=== PATIENT | female | born 1965 | race Caucasian/White ===

== ENCOUNTER 2021-11-06 12:53 | Emergency (ER) | payer BC, SELFPAY ==
[2021-11-06 13:03] VITALS: BP 130/66; PULSE 61; RESP 20; TEMP 36.7; O2SAT 99
--- NOTE | 2021-11-06 13:33 | ED.URI ---
HPI - URI/Sore Throat General Chief Complaint: Upper Respiratory Infection Stated Complaint: uri Time Seen by Provider: 11/06/21 13:34 Source: patient and RN notes reviewed Mode of arrival: ambulatory Limitations: no limitations History of Present Illness HPI Narrative: 55-year-old female presented for complaint of sinus drainage, cough, hoarse voice, and bilateral ear pressure for 2 days. She took NyQuil last night. She endorses her grandson has similar symptoms. She denies shortness of breath, nausea, vomiting, fevers or chills. MD elicited complaint: cough Related Data Home Medications Medication Instructions Recorded Confirmed cyanocobalamin (vitamin B-12) 1,000 mcg IM MONTHLY 11/06/21 11/06/21 1,000 mcg/mL injection solution gabapentin 300 mg capsule 30 mg PO TID 11/06/21 11/06/21 levothyroxine 75 mcg tablet 75 mcg PO DAILY 11/06/21 11/06/21 mirtazapine 30 mg tablet 30 mg PO DAILY 11/06/21 11/06/21 Allergies Allergy/AdvReac Type Severity Reaction Status Date / Time ciprofloxacin [From Cipro] Allergy Hives Verified 11/06/21 13:10 Review of Systems Review of Systems: CONSTITUTIONAL: denies malaise, chills, sweats, fever EYES: Denies visual changes, redness, or discharge ENT: Reports rhinorrhea, congestion, sinus pain, otalgia, sore throat CARDIOVASCULAR: Denies chest pain, palpitations, edema RESPIRATORY: Reports cough, post nasal drainage. Denies dyspnea GASTROINTESTINAL: Denies abdominal pain, nausea, vomiting, diarrhea SKIN: Denies rash or itching MUSCULOSKELETAL: denies myalgia NEUROLOGIC: Denies headache Exam Narrative: GENERAL: Ill-appearing, nontoxic EYES: conjunctivae clear ENT: Mucous membranes moist. TM pearly jane with dull light reflex bilaterally; no tragal tenderness. Oropharynx erythematous without lesions or exudate, hoarse voice; no drooling, no trismus, uvula midline. No tripod positioning, muffled voice, soft palate or pharyngeal wall bulging NECK: Supple. No lymphadenopathy CHEST: Clear to auscultation, breath sounds equal. HEART: Regular rate and rhythm. No murmur heard. SKIN: Warm, dry, no rash. NEURO: Alert and oriented x3. PSYCH: Normal mood and affect Course Course Emergency Course: Patient is aware of diagnosis, understands and agrees to treatment plan. Anticipatory guidance given. Patient agrees to follow-up as directed and is aware of reasons to seek care at the emergency department. Portions of this record may have been created with voice recognition software Level of Care: Express Care Visit Vital Signs Vital signs: Vital Signs Temperature 98.1 F 11/06/21 13:03 Pulse Rate 61 11/06/21 13:03 Respiratory Rate 20 11/06/21 13:03 Blood Pressure 130/66 11/06/21 13:03 Pulse Oximetry 99 11/06/21 13:03 Oxygen Delivery Room Air 11/06/21 13:03 Temperature 98.1 F 11/06/21 13:03 Pulse Rate 61 11/06/21 13:03 Respiratory Rate 20 11/06/21 13:03 Blood Pressure 130/66 11/06/21 13:03 Pulse Oximetry 99 11/06/21 13:03 Oxygen Delivery Room Air 11/06/21 13:03 reviewed MDM - URI/Sore Throat MDM Narrative Medical decision making narrative: Advised supportive measures for URI and signs/symptoms to go to the ER. Pt is appropriate for outpt treatment and f/u. Differential Diagnosis Differential diagnosis: Likely upper respiratory infection, sinusitis and viral infection Discharge Plan Discharge Clinical Impression: Upper respiratory infection Qualifiers: URI type: unspecified URI Qualified Code(s): J06.9 - Acute upper respiratory infection, unspecified Patient Disposition: Home, Self-Care Condition: Stable Instructions: Allergic Rhinitis (ED) Additional Instructions: Recommend Flonase spray and Zyrtec (or Claritin/Mary) over the counter Cough syrup may cause drowsiness; avoid driving or take it at night time. Tylenol 1000mg every 8 hours as needed for pain Symptomatic treatment includes: rest, fluids, and increase hu
== END 2021-11-06 13:48 | disposition home or self-care (01) ==
PROVIDERS: Emergency Provider Nurse Practitioner Family; PCP Family Medicine
DX: J06.9 Acute upper respiratory infection, unspecified (principal)
CPT/HCPCS: 99213; G0463

== ENCOUNTER 2022-04-28 16:14 | Outpatient (CLI) | payer BC, SELFPAY ==
--- NOTE | ~2022-04-28 | US_ITS ---
EXAMINATION: US retroperitoneal comp DATE: 04/28/2022 16:50 INDICATION: Chronic cystitis, history of left renal cyst TECHNIQUE: Multiple grayscale and Doppler ultrasound images of the kidneys were obtained. COMPARISON: None. FINDINGS: The right kidney measures 10.7 x 4.9 x 4.8 cm. The left kidney measures 9.7 x 4.9 x 3.2 cm and contains a 4.7 cm simple cyst. The kidneys demonstrate normal parenchymal echogenicity. There is no hydronephrosis. The bladder is normal. IMPRESSION: 1. Cyst of the left kidney, otherwise normal kidneys without hydronephrosis. Reviewed, dictated and finalized at location F. OGRAPH ENGRAVER
== END 2022-04-28 16:15 | disposition home or self-care (01) ==
LOC: ANHIMG 16:17
PROVIDERS: PCP Family Medicine; Visit Provider Nurse Practitioner Family
DX: N30.20 Other chronic cystitis without hematuria (principal); N28.1 Cyst of kidney, acquired
CPT/HCPCS: 76770

== ENCOUNTER 2022-06-11 09:30 | Inpatient (IN) | payer BC, SELFPAY ==
[2022-06-11] VITALS (21 sets, daily range): BP systolic 118–179; BP diastolic 65–84; PULSE 57–81; RESP 13–21; TEMP 36.8–37.1; O2SAT 93–99; BMI 33.3
--- NOTE | ~2022-06-11 | XR_ITS ---
EXAMINATION: XR chest 1V portable DATE: 06/11/2022 11:45 INDICATION: Syncope. TECHNIQUE: A single frontal view of the chest was obtained. COMPARISON: None. FINDINGS: The chest demonstrates clear lungs without pneumonia, pleural effusion, or pneumothorax. Th e heart size is normal. There are changes of anterior fusion procedures in cervical spine. Surgical c lips in the right upper quadrant are likely from cholecystectomy. IMPRESSION: 1. No acute cardiopulmonary disease. Reviewed, dictated and finalized at location A.
--- NOTE | ~2022-06-11 | MR_ITS ---
EXAMINATION: MR brain/brain stem wo/w con DATE: 06/11/2022 17:32 INDICATION: Syncope. TECHNIQUE: Magnetic resonance imaging (MRI) of the brain and brainstem was performed without and with 17 mL MultiHance intravenous contrast. COMPARISON: Head CT 06/11/2022 FINDINGS: There is no intracranial hemorrhage, acute infarction, or abnormal intracranial mass lesion . The ventricles are normal in size. The orbits are normal. The paranasal sinuses are clear. The mast oid air cells are normal. IMPRESSION: 1. Normal brain. Reviewed, dictated and finalized at location E. IMPRESSION: 1. Normal brain.
--- NOTE | ~2022-06-11 | CT_ITS ---
EXAMINATION: CT brain wo con DATE: 06/11/2022 11:40 INDICATION: Syncope. TECHNIQUE: Computed tomography (CT) of the head was performed without intravenous contrast. The mA wa s adjusted according to patient size. Iterative reconstruction technique was employed. The dose-lengt h product was 605.33 mGy-cm. COMPARISON: None FINDINGS: There is no intracranial hemorrhage, acute infarction, or abnormal intracranial mass lesion . The ventricles are normal in size. The orbits are normal. There is mild mucosal thickening in the p aranasal sinuses. The mastoid air cells are normal. IMPRESSION: 1. Normal brain. Reviewed, dictated and finalized at location A. IMPRESSION: 1. Normal brain.
--- NOTE | ~2022-06-11 | US_ITS ---
EXAMINATION: US carotid duplex BI DATE: 06/11/2022 17:06 INDICATION: Transient alteration of awareness TECHNIQUE: Grayscale, color Doppler, and pulsed Doppler images of the cervical carotid arteries were obtained. The degree of vessel stenosis is placed in one of the following categories: normal, <50%, 5 0-69%, >=70% but less than near-occlusion, near-occlusion, or total occlusion. Note that percent sten osis relative to normal distal artery lumen diameter is indirectly measured from velocity measurement s as described by Taiwo, et al. Radiology 2003; 229:340-346. COMPARISON: None. FINDINGS: RIGHT: The right common carotid artery (CCA) peak systolic velocity (PSV) is 64 cm/s. The right internal car otid artery (ICA) PSV is 61 cm/s. The right ICA end-diastolic velocity (EDV) is 22 cm/s. The right IC A/CCA PSV ratio is 1.0. Grayscale and color Doppler images yield an estimate of less than 50% diamete r reduction from plaque in the ICA. The external carotid artery (ECA) PSV is 92 cm/s. There is antegr andrea flow in the right vertebral artery. LEFT: The left CCA PSV is 68 cm/s. The left ICA PSV is 81 cm/s. The left ICA EDV is 33 cm/s. The left ICA/C CA PSV ratio is 1.2. Grayscale and color Doppler images yield an estimate of less than 50% diameter r eduction from plaque in the ICA. The ECA PSV is 75 cm/s. There is antegrade flow in the left vertebra l artery. IMPRESSION: 1. <50% stenosis in the right internal carotid artery. 2. <50% stenosis in the left internal carotid artery. Reviewed, dictated and finalized at location F.
--- NOTE | 2022-06-11 09:44 | ECG_ITS ---
Measurements Intervals [place] Rate: 67 P: 28 OK: 152 QRS: 26 QRSD: 90 T: 51 QT: 401 QTc: 424 Interpretive Statements SINUS RHYTHM NONSPECIFIC T-WAVE ABNORMALITY BORDERLINE ECG NO PREVIOUS ECG AVAILABLE FOR COMPARISON Electronically Signed On 06-11-2022 16:48:14 CDT by Alexandru Galicia M.D.
[2022-06-11 09:55] LABS: Basophils Absolute Auto 0.1 K/mm3 (0.0-0.1); Basophils Percent Auto 0.6 % (0.2-1.2); Eosinophils Absolute Auto 0.2 K/mm3 (0-0.3); Eosinophils Percent Auto 2.1 % (0-4.4); Hemoglobin 14.1 g/dL (12.0-15.0); Immature Granulocyte Absolute 0.26 K/mm3 (0.00-0.031); Immature Granulocyte Percent A 2.4 % (0-0.5); Lymphocytes Absolute Auto 2.47 K/mm3 (0.9-3.2); Lymphocytes Percent Auto 22.9 % (18.3-44.2); Mean Corpuscular HGB Conc 33.6 g/dl (32-36); Mean Corpuscular Hemoglobin 29.4 pg (26-34); Mean Corpuscular Volume 87.7 fl (80-100); Mean Platelet Volume 8.9 fl (7.4-10.4); Monocytes Absolute Auto 0.5 K/mm3 (0.1-0.6); Neutrophils Absolute Auto 7.2 K/mm3 (1.3-6.7); Platelet Count Result 318 k/mm3 (150-375); Red Blood Count 4.79 M/mm3 (4.2-5.4); Red Cell Distribution Width 12.9 % (11.5-14.5); White Blood Count 10.8 K/mm3 (4.5-10.0)
[2022-06-11 10:05] LABS: Alanine Aminotransferase 21 U/L (6-35); Albumin Level 4.5 g/dL (3.5-5.1); Alkaline Phosphatase 121 U/L (38-126); Anion Gap 7 mmol/L (8-16); Aspartate Amino Transferase 25 U/L (14-36); Bilirubin,Total 0.5 mg/dL (0.2-1.3); Blood Urea Nitrogen 8 mg/dL (7-17); Calcium 9.1 mg/dL (8.4-10.2); Carbon Dioxide 26 mmol/L (22-30); Chloride 105 mmol/L (98-107); Estimated CRCL calculation 113 ml/min; Estimated Glomerular Filt Rate > 60; Glucose 131 mg/dL (65-110); Potassium 3.6 mmol/L (3.4-5.0); Sodium 138 mmol/L (137-145)
[2022-06-11 10:09] LABS: Prothrombin Time 12.7 Seconds (11.1-14.7)
[2022-06-11 10:10] LABS: Partial Thromboplastin Time 26.3 SECONDS (22.3-36.8)
[2022-06-11 10:47] LABS: Appearance Urine Clear (Clear); Bacteria Urine None Seen /hpf; Bilirubin Urine Negative (Negative); Blood Urine Negative (Negative); Color Urine Yellow (Yellow); Glucose Urine UA Negative (Negative); Ketones Urine Negative (Negative); Leukocyte Esterase Ur 2+ LEU/UL (Negative); Nitrate Urine Negative (Negative); Non Pathogenic Casts 0-2; Protein Urine Negative (Negative); RBC Urine 0-2 /hpf (0-2); Specific Grav Ur 1.012 (1.001-1.035); Squamous Epithelial Cell Urine Occasional /hpf (Few); Urobilinogen Urine 0.2 mg/dL (<2.0); pH Urine 5.5 (5.0-9.0)
[2022-06-11 10:49] LABS: Add Urine Microscopic? YES
--- NOTE | 2022-06-11 11:15 | PC.NURSE ---
This nurse called to room at this time. Patient states, I have a headache, there's ringing in my ears, I can't stop shaking, this light is bright and I haven't even seen the doctor yet. This iv hurts too. I don't understand what's taking so long this is ridiculous/ This nurse explained the ER process and that protocol orders were done as well as continuous vital sign monitoring, lights were dimmed to help with patient's symptoms. Patient was asked to keep her arm still while blood pressure was being taken and patient was able to remain entirely still the entire time the blood pressure was being taken. Patient was informed the the physician would be with her as soon as possible and she would continue to be monitored closely for any change in condition. Patient is still upset. Jodie charge nurse notified
--- NOTE | 2022-06-11 11:27 | ED.AMS ---
HPI - Altered Mental Status General Chief Complaint: Altered Mental Status Stated Complaint: unresponsive Time Seen by Provider: 06/11/22 11:00 Source: patient History of Present Illness HPI narrative: 56 years old white female came to the emergency room by ambulance because of syncope. Patient was working in her office sitting on chair sudden onset of left arm pain within 2 minutes patient blacked out and was unresponsive for 15 minutes, upon arrival smelling salts were used and the patient is now conscious. Patient denies any new stress, chest pain, shortness of breath, abdominal pain, fever or chills or having similar symptoms in the past. Currently complaining that her head hurt her eyes hurt and does not feel good. Patient is telling me that she have test of blood in her mouth. Related Data Home Medications Medication Instructions Recorded Confirmed cyanocobalamin (vitamin B-12) 1,000 mcg IM MONTHLY 11/06/21 11/06/21 1,000 mcg/mL injection solution gabapentin 300 mg capsule 30 mg PO TID 11/06/21 11/06/21 levothyroxine 75 mcg tablet 75 mcg PO DAILY 11/06/21 11/06/21 mirtazapine 30 mg tablet 30 mg PO DAILY 11/06/21 11/06/21 Allergies Allergy/AdvReac Type Severity Reaction Status Date / Time ciprofloxacin [From Cipro] Allergy Hives Verified 06/11/22 09:42 Review of Systems Review of Systems: All systems reviewed & are unremarkable except as noted in HPI and below Exam Narrative: General appearance: Well-developed, well-nourished Skin: Normal color Head: Normocephalic, nontraumatic Eyes: Clear conjunctiva ENT: Oropharynx normal, ears normal, nose normal, no oral blood, no biting, Neck: Supple, nontender Chest and respiratory: Airway patent, no respiratory distress, no accessory muscle use Heart: Regular rate/rhythm Abdomen: Soft, nontender, no organomegaly, quiet bowel sounds Vascular: Normal peripheral pulses, normal capillary refill. Musculoskeletal: Normal range of motion, nontender back Neurologic: Alert and oriented ?3, [employer] WORK[employer] is normal as tested, no gross motor deficit Course Reevaluation(s) Reevaluation #1: Feeling much better after having morphine and Zofran IV. Date: 06/11/22 Time: 13:16 Vital Signs Vital signs: Vital Signs Temperature 37.1 C 06/11/22 09:30 Pulse Rate 67 06/11/22 09:30 Respiratory Rate 16 06/11/22 09:30 Blood Pressure 179/84 H 06/11/22 09:30 Pulse Oximetry 98 06/11/22 09:30 Oxygen Delivery Room Air 06/11/22 09:30 Temperature 37.1 C 06/11/22 09:30 Pulse Rate 67 06/11/22 12:29 Respiratory Rate 17 06/11/22 12:29 Blood Pressure 144/72 H 06/11/22 12:29 Pulse Oximetry 99 06/11/22 12:29 Oxygen Delivery Room Air 06/11/22 09:30 MDM - Altered Mental Status MDM Narrative Medical decision making narrative: Patient had syncope at work while sitting on the computer, after having sudden onset of left arm pain. Patient was unresponsive for 15 minutes, history of anxiety and depression. Differential diagnosis: Anxiety related symptoms, seizure, cardiac arrhythmia. Physical examination is unremarkable except patient complaining of headache and the blood test abnormality. Work-up today showed urine with 2+ leukoesterase and 11-20 WBC. This is high likely coincidental finding, urine infection was never trigger or associated with syncope. Chest x-ray showed no acute abnormality, CT head without contrast showed no acute abnormality. Because the syncope still of unknown etiology. Patient will be admitted to [facility] for further evaluation. Discussed with Dr. Fuller Differential Diagnosis Differential diagnosis: Likely other (Anxiety-like symptoms, seizure, cardiac arrhythm
[2022-06-11 11:58] LABS: Amphetamine Screen Urine Negative (Negative); Barbiturate Screen Urine Negative (Negative); Benzodiazepines Screen Urine Negative (Negative); Cannabinoid Screen Urine Negative (Negative); Cocaine Screen Urine Negative (Negative); Methadone Screen Urine Negative (Negative); Opiate Screen Urine Negative (Negative); Phencyclidine Screen Urine Negative (Negative)
--- NOTE | 2022-06-11 12:37 | PC.NURSE ---
heart healthy lunch tray ordered
[2022-06-11] MEDS: MORPHINE SULFATE (*CRX) 4 MG/ML INJ IV PUSH (13:17)
[2022-06-11] MEDS: ONDANSETRON INJ 4 MG/2 ML VIAL IV PUSH (13:17)
--- NOTE | 2022-06-11 13:20 | PC.NURSE ---
patient finished with lunch tray at this time
--- NOTE | 2022-06-11 13:45 | PM.IMHP ---
H&P: HPI History of Present Illness Date/Time: 06/11/22 13:45 Chief Complaint: Syncope. Narrative: This is a 56-year-old female with hypothyroidism and depression who presented to the emergency department via EMS from her place of employment for evaluation after syncopal episode. Patient provides the following history. Simply while sitting in her chair at work she developed sudden onset of severe, sharp left arm pain and within a couple of minutes of onset she had a syncopal episode where she was reportedly unresponsive for upwards of 15 minutes. Coworkers report that she fell back into her chair and she reportedly was very pale and almost jane in appearance. She did not demonstrate any movement of her extremities but she supposedly had fluttering of her eyelids. She remained unresponsive in route to the hospital though her vital signs were stable. Smelling salts were used upon arrival to the ER and she wakened shortly thereafter and she was alert and oriented x4 though confused as to what had happened at the office. She no longer has left arm pain but complains of a diffuse aching sensation across her chest, a pretty severe headache ?like it is going to explode,? and eye pain. She had RSV about a month ago and no symptoms have all resolved aside from some discomfort in her right ear with bilateral tinnitus and a bit of muffled hearing though that does not sound as though that is a new finding. She denies vertigo, focal weakness, facial droop, and difficulty speaking and swallowing. She has not had exertional chest pain or shortness of breath. No prior history of syncope or seizure. She denies significant alcohol use. She has not had any recent change in medications. She has not been sleeping well however. Labs, urine drug screen, and brain CT were all pretty unremarkable. Review of Systems Review of Systems: Twelve systems were reviewed and are negative except for as per HPI. [facility] Past Medical History Medical History (Updated 06/11/22 @ 21:04 by Shanti Morris PA-C) Hypothyroidism Spondylosis Surgical History Surgical History (Updated 06/11/22 @ 21:01 by Shanti Morris PA-C) History of ankle surgery History of carpal tunnel release History of cervical spinal surgery Cage from C5-C7. History of section History of cholecystectomy History of gastric bypass History of hysterectomy History of tonsillectomy Family History Family History Mother Uterine cancer Father Heart disease Social History Social History (Updated 06/11/22 @ 21:02 by Shanti Morris PA-C) Social History: Surrogate medical decision maker: Paras Brunson, son. Code status: Full code. Smoking status: Never smoker Alcohol intake: current Drinks per week: 1 Substance use: unknown Lack of Transportation: No Lack of Food: Never True Current Housing: I Have Housing Concerned About Future Housing: No Difficulty Paying Gas/Electric Bills: No Difficulty Paying for Meds: No Currently Unemployed: No Education: High School Diploma/GED Difficulty w/ Childcare or Family Care: No Additional living arrangements comments: Lives in [place]. Her son, [id number], and 3 grandchildren live with her. Additional occupation/education comments: Works for [employer]. Spiritual care concerns: No Meds Home Medications and Allergies Home Medications Medication Instructions Recorded Confirmed Type cetirizine 10 mg tablet (Zyrtec) 10 mg PO DAILY PRN congestion #20 11/06/21 06/11/22 Rx tabs cyanocobalamin (vitamin B-12) 1,000 mcg IM MONTHLY 11/06/21 06/11/22 History 1,000 mcg/mL injection solution fluticasone propionate 50 2 spray intranasal DAILY PRN 11/06/21 06/11/22 Rx mcg/actuation nasal allergy symptoms #16 grams spray,suspension (Flonase Allergy Relief) gabapentin 300 mg capsule 300 mg PO TID 11/06/21 06/11/22 Histor
--- NOTE | 2022-06-11 13:50 | ECHO_ITS ---
Patient Info Name: Ruth Brunson Age: 56 years : 1965 Gender: Female Ht: 64 in Wt: 187 lbs BSA: 1.99 m2 HR: 79 bpm BP: 136 / 68 mmHg Heart Rhythm: Sinus Rhythm Technical Quality: Fair Exam Date: 06/11/2022 3:28 PM Exam Location: [facility] Card Pulmonary Patient Status: Inpatient Admit Date: 06/11/2022 Staff Ordering Physician: Shanti Morris PA-C Commutator Operator: Sandra Randall RDCS Attending Provider: Jignesh Bobby MD Referring Physician: Arturo BASHIR; Exam Type: CA echo doppler color flow Study Info Indications R55 - Syncope and collapse Complete two-dimensional, color flow and Doppler transthoracic echocardiogram is performed. Summary 1. Complete two-dimensional, color flow and Doppler transthoracic echocardiogram is performed. 2. Left ventricular chamber dimension is normal. 3. Left ventricular systolic function is normal, estimated at 60-65%. 4. The left ventricular diastolic function is normal. 5. E/e' 9 is minimally elevated. 6. There is mild aortic valve sclerosis. 7. There is trace mitral valve regurgitation. 8. There is trace tricuspid valve regurgitation. 9. No pulmonary hypertension, estimated pulmonary arterial systolic pressure is 20 mmHg. Left Ventricle E/e' 9 is minimally elevated. Left ventricular chamber dimension is normal. Left ventricular systolic function is normal, estimated at 60-65%. The left ventricular diastolic function is normal. Right Ventricle Right ventricular systolic function is normal and with normal TAPSE 1.7 cm. Right ventricular chamber dimension is normal. Left Atria Left atrial chamber dimension is normal. Right Atria Right atrial chamber dimension is normal. Aortic Valve The aortic valve is trileaflet. There is mild aortic valve sclerosis. There is no aortic valve stenosis. There is no aortic valve regurgitation. Pulmonic Valve There is no pulmonic regurgitation. Mitral Valve There is no mitral valve stenosis. There is trace mitral valve regurgitation. Tricuspid Valve There is trace tricuspid valve regurgitation. No pulmonary hypertension, estimated pulmonary arterial systolic pressure is 20 mmHg. Pericardium/Pleural There is no pericardial effusion. Inferior Vena Cava Normal inferior vena cava with >50% collapse upon inspiration consistent with normal right atrial pressure, 5 mmHg. Aorta The aortic root size at the sinus of Valsalva is normal. Left Ventricular Outflow Tract Name Value Normal LVOT 2D LVOT Diameter 2.0 cm LVOT Doppler LVOT Peak Gradient 3 mmHg LVOT Mean Gradient 2 mmHg LVOT VTI 19 cm LVOT VTI/AV VTI Ratio 0.6 LVOT Stroke Volume 59 ml LVOT CO 3.4 l/min LVOT CI 1.7 l/min/m2 Pulmonic Valve Name Value Normal
--- NOTE | 2022-06-11 14:46 | ADMGEN ---
This patient, Ruth Brunson, was admitted to 3 Medical Room 340-01 @1400. Patient/family oriented to hospital policies and general routines including ID bracelet, bed and alarms, visiting hours, pain management, procedures, bathroom and other care routines, personal items, smoking policy, room service/diet, and visiting hours. Information on how to activate the Rapid Response Team has been discussed. Patient/Family are encouraged to report perceived risks to care and to ask questions if they do not understand what they are told or what they should do.
[2022-06-11 16:16] LABS: Troponin I < 0.012 ng/mL (0.000-0.034)
[2022-06-11 18:22] LABS: Troponin I < 0.012 ng/mL (0.000-0.034)
[2022-06-11] MEDS: ACETAMINOPHEN 325 MG TABLET 650 MG PO (18:39)
[2022-06-11 21:05] LABS: Troponin I < 0.012 ng/mL (0.000-0.034)
[2022-06-11] MEDS: IBUPROFEN 600 MG TABLET PO (21:34)
[2022-06-11] MEDS: MIRTAZAPINE 30 MG TABLET PO (21:34)
[2022-06-11] MEDS: GABAPENTIN 300 MG CAPSULE 900 MG PO (21:35)
[2022-06-11] MEDS: SERTRALINE HCL 50 MG TABLET 150 MG PO (21:35)
[2022-06-11 21:59] LABS: EDCOVIDSCREEN Negative (Negative)
[2022-06-11 22:14] LABS: D Dimer 0.31 ug/mL (<0.48)
[2022-06-12] VITALS (15 sets, daily range): BP systolic 121–146; BP diastolic 57–76; PULSE 50–77; RESP 12–18; TEMP 36.3–36.8; O2SAT 95–98
[2022-06-12] MEDS: LEVOTHYROXINE SODIUM 75 MCG TABLET PO (05:49)
[2022-06-12 06:14] LABS: Anion Gap 8 mmol/L (8-16); Blood Urea Nitrogen 13 mg/dL (7-17); Calcium 8.8 mg/dL (8.4-10.2); Carbon Dioxide 23 mmol/L (22-30); Chloride 107 mmol/L (98-107); Cholesterol 207 mg/dL (0-200); Estimated CRCL calculation 100 ml/min; Estimated Glomerular Filt Rate > 60; Glucose 110 mg/dL (65-110); HDL Direct 50 mg/dL; Magnesium 2.2 mg/dL (1.6-2.3); Potassium 4.8 mmol/L (3.4-5.0); Sodium 138 mmol/L (137-145); Triglycerides 290 mg/dL (<150)
[2022-06-12 06:23] LABS: LDL Cholesterol Direct 101 mg/dL
[2022-06-12 09:36] LABS: Glucose Point of Care 299 mg/dl (65-105)
[2022-06-12] MEDS: LORazepam INJ (*CRX) 2 MG/ML VIAL IV PUSH (09:40)
--- NOTE | 2022-06-12 10:12 | PC.NURSE ---
Spoke with son, Paras, and updated him on mothers condition and that she is being transferred to IMU
--- NOTE | 2022-06-12 10:25 | PC.NURSE ---
Vulcan Crewmember Responded to patients call light at approx 0920. Pt was unresponsive in bed. A rapid response was initiated.
--- NOTE | 2022-06-12 11:20 | WPDNEURCNPN ---
Assessment and Plan Assessment and plan (1) Seizure: Code(s): R56.9 - Unspecified convulsions Status: Acute Plan Ms. Brunson is a 56 year old female who presented due to unresponsive episode. Today had another episode of eye fluttering with fixed pupils which is concerning for focal seizure. Etiology is unclear. MRI brain is negative. UDS was negative as well. UA showed some LE and WBC but not sure if significant enough. Urine culture is pending. Patient is currently post-ictal and also received a dose of Ativan so mental status exam is clouded. If there are persistent concerns regarding her mental status, lumbar puncture may be considered. - Continue Keppra 1000mg BID - If any recurrence of seizures, load with Lacosamide 400mg IV and increase Keppra dose to 1500mg BID - Routine EEG on Tuesday. However, if there are concerns for ongoing occult seizures, may need to be transferred to tertiary center for video EEG monitoring. Consult date: 06/12/22 Reason for consult: Seizure HPI: Ruth Brunson is a 56 year old female with a history of hypothyroidism and depression presenting due to concerns for seizure-like activity. Patient had an episode of loss of consciousness yesterday. She was sitting in her chair at work when she developed severe left arm pain, and then lost consciousness for about 15 minutes. Her colleagues reported that she fell back into her chair, was very pale, and had fluttering of her eyelids. She did not have any other involvuntary movements. Patient remained unresponsive en route to the ED. Smelling salts were used in the ED and patient woke up shortly afterwards. She was a little confused, but AOx4. She had a CT head that was normal. She complained of headache but no other recent illness. Patient was admitted for further evaluation. This morning, patient had an episode of unresponsiveness. She pressed her call button and when staff arrived at bedside, patient was unresponsive with eyes fluttering. She was noted to have nystagmus and her pupils were not reactive. Unclear how long the entire episode lasted, but she was given a dose of Ativan. Once the episode stopped, she was lethargic. Patient was also given 4g Keppra load and started on maintenance Keppra of 1000mg BID. She has already had an MRI done during this admission that was normal. Her UA shows LE and some WBC. She has been started on antibiotics. Her UDS was negative. She is being transferred to ICU for closer monitoring. Review of Systems Review of Systems: ROS unobtainable: Yes unobtainable due to mental status PMFSH Past Medical History Medical History Hypothyroidism Spondylosis Surgical History Surgical History History of ankle surgery History of carpal tunnel release History of cervical spinal surgery Cage from C5-C7. History of section History of cholecystectomy History of gastric bypass History of hysterectomy History of tonsillectomy Family History Family History Mother Uterine cancer Father Heart disease Social History Social History Social History: Surrogate medical decision maker: Paras Brunson, son. Code status: Full code. Smoking status: Never smoker Alcohol intake: current Drinks per week: 1 Substance use: unknown Lack of Transportation: No Lack of Food: Never True Current Housing: I Have Housing Concerned About Future Housing: No Difficulty Paying Gas/Electric Bills: No Difficulty Paying for Meds: No Currently Unemployed: No Education: High School Diploma/GED Difficulty w/ Childcare or Family Care: No Additional living arrangements comments: Lives in [place]. Her son, [id number], and 3 grandchildren live with her. Additional occupation/education comments: Works for
--- NOTE | 2022-06-12 12:25 | PC.NURSE ---
Pt was transferred to ICU - 7 with personal belongings. Well Reactivator Operator gave phone report to CODEY Concepcion prior to transfer,
[2022-06-12 13:26] LABS: Free T4 Free Thyroxine Reflex 1.41 ng/dL (0.78-2.19)
--- NOTE | 2022-06-12 14:28 | PM.IMPN ---
Progress Note: A&P Assessment and Plan (1) Seizure: Code(s): R56.9 - Unspecified convulsions Status: Suspected Assessment and Plan: At 9:15 a.m. rapid response was called on patient due to unresponsiveness. Patient's vital signs are stable at the time and morning labs were unrevealing. Upon examination the patient her eyelids were fluttering and was were fixed and nonreactive. Patient arouse to sternal rub and was able to talk to staff and stated that she had started getting a headache and feeling very tired when she pushed the call light button. Nursing staff responded and by the time they responded patient was unresponsive. Soon after patient was aroused she became unconscious again. I called attending physician to assist with the patient. Patient returned to having flat face ease with fluttering eyelids and fixed pupils. Seizure expected and patient was given 2 mg of Ativan. Patient regained consciousness at this time and stated that she was very very tired. Patient and postictal state when she was re-evaluated. Neurology consulted and appreciate recommendations. 4000 mg loading dose Keppra given per neurology. 1000 mg q.12 Keppra IV P.r.n. Ativan 2 mg for seizure activity EEG cannot be performed until Tuesday (2) Syncope: Code(s): R55 - Syncope and collapse Status: Acute Assessment and Plan: Precipitating etiology is not entirely clear though may be related to pain as she reports the sudden onset of severe left arm pain prior to the episode. Cannot rule out seizure given reports of fluttering of the eyes though that seems less likely as she was not postictal, there was no tongue bite or incontinence, and her labs were really unremarkable. She was seated when the episode occurred thus we need to rule out cardiac dysrhythmia and she is being monitored on telemetry. Chest x-ray no acute cardiopulmonary process CT normal brain Check orthostatic blood pressures. Carotid Dopplers less than 50% stenosis in left and right ICA Brain MRI normal brain EEG on a we performed till Tuesday06/14/2022 Neurology consulted by ED physician. (3) Chest pain: Code(s): R07.9 - Chest pain, unspecified Status: Acute Assessment and Plan: She is complaining of a vague aching discomfort in the anterior chest which does not sound to be pleuritic in nature. It is not reproducible on exam either. May be some component of anxiety. Pulmonary embolism seems unlikely as she is not short of, hypoxic, or tachycardic. D-dimer negative. Tropes negative x3 Echo pending. (4) Hypothyroidism: Code(s): E03.9 - Hypothyroidism, unspecified Status: Acute Assessment and Plan: Continue levothyroxine and check TSH. (5) Serous otitis media: Code(s): H65.90 - Unspecified nonsuppurative otitis media, unspecified ear Status: Acute Assessment and Plan: Likely related to recent RSV infection. No indication for antibiotics. Subjective Date/time seen: 06/12/22 14:28 Interval history: At 9:15 a.m. rapid response was called on patient due to unresponsiveness. Patient's vital signs are stable at the time and morning labs were unrevealing. Upon examination the patient her eyelids were fluttering and was were fixed and nonreactive. Patient arouse to sternal rub and was able to talk to staff and stated that she had started getting a headache and feeling very tired when she pushed the call light button. Nursing staff responded and by the time they responded patient was unresponsive. Soon after patient was aroused she became unconscious again. I called attending physician to assist with the patient. Patient returned to having flat face ease with fluttering eyelids and fixed pupils. Seizure expected and patient was given 2 mg of Ativan. Patient regained consciousness at this time and stated that she was very very tired. Patient and post
[2022-06-12 15:29] LABS: Total Triiodothyronine (T3) 1.19 NG/ML (0.97-1.69)
[2022-06-12] MEDS: levETIRAcetam 1000MG/NACL100ML 1,000 MG/100 ML BAG 400 MG IVPB (20:42)
[2022-06-12] MEDS: MIRTAZAPINE 30 MG TABLET PO (20:43)
[2022-06-12] MEDS: GABAPENTIN 300 MG CAPSULE 900 MG PO (20:43)
[2022-06-12] MEDS: SERTRALINE HCL 50 MG TABLET 150 MG PO (20:44)
[2022-06-13] VITALS (72 sets, daily range): BP systolic 114–164; BP diastolic 65–88; PULSE 54–83; RESP 12–26; TEMP 36.6–36.7; O2SAT 92–100
[2022-06-13 04:40] LABS: Basophils Absolute Auto 0.1 K/mm3 (0.0-0.1); Basophils Percent Auto 0.8 % (0.2-1.2); Eosinophils Absolute Auto 0.2 K/mm3 (0-0.3); Eosinophils Percent Auto 2.3 % (0-4.4); Hematocrit 40.1 % (37.0-47.0); Hemoglobin 13.1 g/dL (12.0-15.0); Immature Granulocyte Percent A 3.1 % (0-0.5); Lymphocytes Absolute Auto 2.34 K/mm3 (0.9-3.2); Lymphocytes Percent Auto 24.1 % (18.3-44.2); Mean Corpuscular HGB Conc 32.7 g/dl (32-36); Mean Corpuscular Hemoglobin 29.3 pg (26-34); Mean Corpuscular Volume 89.7 fl (80-100); Mean Platelet Volume 8.9 fl (7.4-10.4); Monocytes Absolute Auto 0.5 K/mm3 (0.1-0.6); Monocytes Percent Auto 5.6 % (2.6-8.5); Neutrophils Absolute Auto 6.2 K/mm3 (1.3-6.7); Neutrophils Percent Auto 64.1 % (45.5-73.1); Platelet Count Result 269 k/mm3 (150-375); Red Blood Count 4.47 M/mm3 (4.2-5.4); Red Cell Distribution Width 13.1 % (11.5-14.5); White Blood Count 9.7 K/mm3 (4.5-10.0)
[2022-06-13 04:50] LABS: Alanine Aminotransferase 21 U/L (6-35); Alkaline Phosphatase 105 U/L (38-126); Anion Gap 6 mmol/L (8-16); Aspartate Amino Transferase 23 U/L (14-36); Bilirubin,Total 0.5 mg/dL (0.2-1.3); Blood Urea Nitrogen 13 mg/dL (7-17); Calcium 8.5 mg/dL (8.4-10.2); Carbon Dioxide 29 mmol/L (22-30); Chloride 104 mmol/L (98-107); Estimated CRCL calculation 100 ml/min; Estimated Glomerular Filt Rate > 60; Glucose 117 mg/dL (65-110); Potassium 3.9 mmol/L (3.4-5.0); Sodium 139 mmol/L (137-145)
[2022-06-13] MEDS: LEVOTHYROXINE SODIUM 75 MCG TABLET PO (06:21)
[2022-06-13] MEDS: levETIRAcetam 1000MG/NACL100ML 1,000 MG/100 ML BAG 400 MG IVPB ×2 (08:51→21:47)
[2022-06-13] MEDS: ENOXAPARIN 40 MG/0.4 ML SYRINGE SUB-Q (08:52)
--- NOTE | 2022-06-13 12:24 | PM.IMPN ---
Progress Note: A&P Assessment and Plan (1) Seizure: Code(s): R56.9 - Unspecified convulsions Status: Suspected Assessment and Plan: Rapid response was called yesterday morning when patient found unresponsiveness. Patient had a BOWEN and felt tired when she contacted the nurse. Staff found her unresponsive. Patient's vital signs were stable at the time and morning labs were unrevealing. Upon examination the patient's eyelids were fluttering and were fixed and nonreactive. Patient aroused to sternal rub but became unconscious again. Seizure expected and patient was given 2 mg of Ativan. Patient regained consciousness at this time and stated that she was very very tired. Patient was postictal state when she was re-evaluated. Etiology unclear. MRI brain normal. No hx of current alcohol or drug use. She does have a hx of vicodin. UDS negative. Consider pseudoseizures. Mirtazapine can cause seizure but extremely unlikely (0.008% increase). Has not missed any Manjinder doses. Events associated with headaches - consider complex migraines. Hx of hysterectomy so ruled out. Check apnea link Neurology consulted and appreciate recommendations. 4000 mg loading dose Keppra given per neurology. She was started on 1000 mg q.12 Keppra IV P.r.n. Ativan 2 mg for seizure activity EEG tomorrow (2) Syncope: Code(s): R55 - Syncope and collapse Status: Acute Assessment and Plan: Precipitating etiology is not entirely clear though may be related to pain as she reports the sudden onset of severe left arm pain prior to the episode. Consider seizure related. Need to rule out cardiac dysrhythmia and she is being monitored on telemetry. Chest x-ray no acute cardiopulmonary process CT normal brain Check orthostatic blood pressures. Carotid Dopplers less than 50% stenosis in left and right ICA Brain MRI normal brain EEG tomorrow Neurology consulted and appreciate their input. (3) Chest pain: Code(s): R07.9 - Chest pain, unspecified Status: Acute Assessment and Plan: She was complaining of a vague aching discomfort in the anterior chest. PE seems unlikely as she is not SOB, hypoxic, or tachycardic. Plus D-dimer negative. Tropes negative x3 EKG showing nonspecific T wave changes Echo pending. Continue to monitor on tele. (4) Hypothyroidism: Code(s): E03.9 - Hypothyroidism, unspecified Status: Acute Assessment and Plan: TSH mildly elevated at 5. Continue levothyroxine. (5) Serous otitis media: Code(s): H65.90 - Unspecified nonsuppurative otitis media, unspecified ear Status: Acute Assessment and Plan: Likely related to recent RSV infection. No indication for antibiotics. Subjective Date/time seen: 06/13/22 12:24 Interval history: 56yo female with hypothyroidism and depression here for evaluation after syncopal episode. At 9:15 a.m. on 06/12, rapid response was called on patient due to unresponsiveness. Patient's eyelids were fluttering and was were fixed and nonreactive. Seizure expected and patient was given 2 mg of Ativan. Patient states she has no memory of this or memory of the last 24 hours. She feels better. No CP or SOB. She feels tired. Up walking in the room. No excessive alcohol use. Last drink was 1 week ago. 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 Has not missed a dose of her Gabapentin. Home valdez verified that she takes 900mg at night Exam Narrative: AF 98.0 135/88 60 15 97% ra Gen - NARD Chest - CTA bilaterally, nml RR CV - RRR S1/S2. Tele showing no acute dysrhythmias Abd - Soft, NT/ND, Positive BS Ext - No pedal edema Neuro - Alert and oriented x4. mildly somnolent. Nonfocal exam. Psych - Nml mood and affect Skin - Warm and dry Objective Data Vital Signs Vital Signs: Vital Signs - 24 hr 06/12/22 12:32 06/12/22 12:36 06/12/22 14:00 Temperatur
[2022-06-13] MEDS: ACETAMINOPHEN 325 MG TABLET 650 MG PO (12:41)
--- NOTE | 2022-06-13 13:30 | WPDNEUROPN ---
Progress Note: A&P Assessment and Plan (1) Seizure: Code(s): R56.9 - Unspecified convulsions Status: Suspected Plan Ms. Brunson is a 56 year old female who presented due to unresponsive episode. Today had another episode of eye fluttering with fixed pupils which is concerning for focal seizure. Etiology is unclear. MRI brain is negative. UDS was negative as well. UA showed some LE and WBC but urine culture came back negative. Mental status has improved since yesterday. Patient is still a little drowsy but close to baseline. - Continue Keppra 1000mg BID - If any recurrence of seizures, load with Lacosamide 400mg IV and increase Keppra dose to 1500mg BID - Routine EEG on Tuesday. - Discussed with patient, no driving until seizure free for 6 months Subjective Date/time seen: 06/13/22 13:30 Interval history: Ruth Brunson is a 56 year old female with a history of hypothyroidism and depression presenting due to concerns for seizure-like activity. Patient had an episode of loss of consciousness yesterday. She was sitting in her chair at work when she developed severe left arm pain, and then lost consciousness for about 15 minutes. Her colleagues reported that she fell back into her chair, was very pale, and had fluttering of her eyelids. She did not have any other involuntary movements. Patient remained unresponsive en route to the ED. Smelling salts were used in the ED and patient woke up shortly afterwards. She was a little confused, but AOx4. She had a CT head that was normal. She complained of headache but no other recent illness. Patient was admitted for further evaluation. Yesterday morning, patient had an episode of unresponsiveness. She pressed her call button and when staff arrived at bedside, patient was unresponsive with eyes fluttering. She was noted to have nystagmus and her pupils were not reactive. Unclear how long the entire episode lasted, but she was given a dose of Ativan. Once the episode stopped, she was lethargic. Patient was also given 4g Keppra load and started on maintenance Keppra of 1000mg BID. She has already had an MRI done during this admission that was normal. Her UA had LE and some WBC. She was transferred to the ICU and started on antibiotics. However antibiotics discontinued when urine culture came back negative. Patient has no recollection of the events that happened yesterday. She denies any prior history of seizures. She does not have any family history of seizures. She also denies any prior history of TBI or meningitis. Other than bilateral tinnitus she does not have any other complaints currently. Review of Systems Constitutional: Constitutional: Reports no additional constitutional complaints Eyes: Eyes: Reports no additional eye complaints ENT: Reports tinnitus Cardiovascular: Cardiovascular: Reports no additional cardiovascular complaints Respiratory: Respiratory: Reports no additional respiratory complaints Gastrointestinal: Gastrointestinal: Reports no additional gastrointestinal complaints Genitourinary: Genitourinary: Reports no additional female genitourinary complaints Musculoskeletal: Musculoskeletal: Reports no additional musculoskeletal complaints Integumentary/Breasts: Skin/Breast: Reports system reviewed and no additional complaints, except as docu Neurologic: Reports as per HPI Psychiatric: Psychiatric: Reports anxiety and Reports depression Exam Const: General: comfortable and no acute distress Other: Playing game on IPAD HENMT: Mouth: Yes moist mucous membranes Eyes: Pupils: Equal, round and reactive pupils present EOM: EOMs intact bilaterally Resp: Effort & Inspection: normal respiratory effort Skin: General skin exam: normal color Neuro: Other: AOx3. Pupils equal and reactive bilaterally, EOMI, face symmetric, facial sensation intact, tongue protrudes midline, palate midline. Shoulder shrug normal. Strength 5/5 throughout. Sensation intact throughout, F
[2022-06-13 17:52] LABS: Folic Acid 11.1 ng/mL (2.76->20)
--- NOTE | 2022-06-13 19:12 | PC.NURSE ---
Patient caught vaping, vape pen retrieved by security and locked in ICU safe
[2022-06-13] MEDS: GABAPENTIN 300 MG CAPSULE 900 MG PO (21:48)
[2022-06-13] MEDS: SERTRALINE HCL 50 MG TABLET 150 MG PO (21:48)
[2022-06-13] MEDS: MIRTAZAPINE 30 MG TABLET PO (21:48)
[2022-06-14] VITALS (8 sets, daily range): BP systolic 112–140; BP diastolic 53–80; PULSE 53–67; RESP 14–21; TEMP 36.6–36.9; O2SAT 95
[2022-06-14] MEDS: LEVOTHYROXINE SODIUM 75 MCG TABLET PO (06:43)
[2022-06-14] MEDS: levETIRAcetam 1000MG/NACL100ML 1,000 MG/100 ML BAG 400 MG IVPB (08:48)
[2022-06-14] MEDS: ENOXAPARIN 40 MG/0.4 ML SYRINGE SUB-Q (08:49)
--- NOTE | 2022-06-14 10:28 | WPDNEUROLOGY ---
Neurology EEG Report General Information Date of Study: 06/14/22 TEST eeg DIAGNOSIS Unresponsive episode with fluttering of the eyelids CONDITION OF RECORDING awake drowsy and sleep EEG NUMBER [id number] CLINICAL HISTORY patient reported she lost consciousness couple of days ago at work then had a similar episode while here at the hospital 2 days ago. EEG DESCRIPTION Basic resting occipital frequency consists of low to medium voltage 9 to 11 hertz per 2nd alpha admixed with low-voltage 15 to 18 hertz per 2nd beta intermittently. Low-voltage beta activity seen diffusely admixed with waxing and waning posterior alpha rhythm during drowsiness. Bilateral symmetrical sleep activity seen during sleep with admixed beta and theta and delta activity. Hyperventilation not done. Photic stimulation not done. Non paroxysmal. Nonfocal. Nonlateralizing. IMPRESSION Normal record
--- NOTE | 2022-06-14 11:28 | WPDNEUROPN ---
Subjective Date/time seen: 06/14/22 11:28 Interval history: Initially seen by Dr. Fuller for an unresponsive episode with fluttering of the eyelids but at the same time fixed pupil raising the possibility of focal seizure with subsequent improvement in the mental status patient was on Keppra 1000 mg twice a day with the intention of the episodes recurred she will be loaded with lacosamide 40 mg IV and Keppra will be increased [id number] b.i.d.. Routine EEG was obtained which was with no significant abnormality remains stable plan is the same. Objective Data Vital Signs Vital Signs: Vital Signs - 24 hr 06/13/22 12:00 06/13/22 12:00 06/13/22 11:30 Temperature Pulse Rate 67 67 62 Respiratory Rate 20 16 Blood Pressure Pulse Oximetry 97 96 Oxygen Delivery Room Air Fraction of Inspired Oxygen 06/13/22 11:45 06/13/22 12:00 06/13/22 12:01 Temperature Pulse Rate 67 65 66 Respiratory Rate 18 15 15 Blood Pressure 164/73 H Pulse Oximetry 99 98 92 Oxygen Delivery Fraction of Inspired Oxygen 06/13/22 12:15 06/13/22 12:30 06/13/22 12:45 Temperature Pulse Rate 67 69 65 Respiratory Rate 20 16 19 Blood Pressure Pulse Oximetry 96 96 96 Oxygen Delivery Fraction of Inspired Oxygen 06/13/22 14:00 06/13/22 16:00 06/13/22 16:00 Temperature Pulse Rate 72 68 83 Respiratory Rate Blood Pressure Pulse Oximetry 95 Oxygen Delivery Room Air Fraction of Inspired Oxygen 06/13/22 17:56 06/13/22 13:31 06/13/22 13:54 Temperature Pulse Rate 71 67 80 Respiratory Rate 17 22 H Blood Pressure Pulse Oximetry 96 97 Oxygen Delivery Fraction of Inspired Oxygen 06/13/22 14:40 06/13/22 14:48 06/13/22 15:02 Temperature Pulse Rate 73 71 78 Respiratory Rate 13 12 20 Blood Pressure Pulse Oximetry 98 97 97 Oxygen Delivery Fraction of Inspired Oxygen 06/13/22 15:47 06/13/22 16:00 06/13/22 16:15 Temperature Pulse Rate 75 69 66 Respiratory Rate Blood Pressure Pulse Oximetry 98 98 95 Oxygen Delivery Fraction of Inspired Oxygen 06/13/22 16:30 06/13/22 16:45 06/13/22 16:54 Temperature Pulse Rate 62 67 69 Respiratory Rate Blood Pressure 152/81 H Pulse Oximetry 99 99 99 Oxygen Delivery Fraction of Inspired Oxygen 06/13/22 17:00 06/13/22 17:16 06/13/22 17:30 Temperature Pulse Rate 67 71 68 Respiratory Rate Blood Pressure Pulse Oximetry 97 98 97 Oxygen Delivery Fraction of Inspired Oxygen 06/13/22 17:45 06/13/22 20:00 06/13/22 20:00 Temperature 36.7 C Pulse Rate 62 62 Respiratory Rate 18 Blood Pressure 125/74 Pulse Oximetry 98 99 Oxygen Delivery Fraction of Inspired Oxygen 06/13/22 20:00 06/13/22 22:00 06/13/22 22:00 Temperature Pulse Rate 61 61 Respiratory Rate 19 Blood Pressure 137/73 Pulse Oximetry 98 Oxygen Delivery Room Air Fraction of Inspired Oxygen 06/14/22 00:00 06/14/22 00:00 06/14/22 02:00 Temperature Pulse Rate 63 63 53 L Respiratory Rate 20 Blood Pressure 131/68 Pulse Oximetry 95 Oxygen Delivery Fraction of Inspired Oxygen 06/14/22 02:00 06/14/22 04:00 06/14/22 04:00 Temperature Pulse Rate 53 L 58 L 58 L Respiratory Rate 19 16 Blood Pressure 112/60 114/53 L Pulse Oximetry 95 95 Oxygen Delivery Fraction of Inspired Oxygen 06/13/22 22:45 06/14/22 06:00 06/14/22 06:00 Temperature 36.7 C Pulse Rate 58 L 58 L Respiratory Rate 16 Blood Pressure 125/71 Pulse Oximetry 96 95 Oxygen Delivery Room Air Fraction of Inspired Oxygen 21 06/14/22 00:00 06/14/22 04:00 06/14/22 08:00 Temperature Pulse Rate 58 L Respiratory Rate Blood Pressure Pulse Oximetry 95 95 Oxygen Delivery Room Air Room Air Fraction of Inspired Oxygen 06/14/22 08:00 06/14/22 08:00 06/14/22 10:00 Temperature 36.6 C Pulse Rate 58 L 58 L 64 Respiratory Rate 14 14 Blood Pressure 140
--- NOTE | 2022-06-14 14:09 | PM.DS ---
DS: Admitting Diagnosis Discharge Date 06/14/22 Admitting Diagnosis Syncopal episode DS: Discharge Diagnosis Discharge Diagnosis (1) Seizure: Code(s): R56.9 - Unspecified convulsions Status: Suspected (2) Syncope: Code(s): R55 - Syncope and collapse Status: Acute (3) Chest pain: Code(s): R07.9 - Chest pain, unspecified Status: Acute (4) Hypothyroidism: Code(s): E03.9 - Hypothyroidism, unspecified Status: Acute (5) Serous otitis media: Code(s): H65.90 - Unspecified nonsuppurative otitis media, unspecified ear Status: Acute DS: Summary Hospital Course Reason for hospitalization: 56yo female with hypothyroidism and depression here for evaluation after syncopal episode. Please see H&P for details. Hospital Course: Patient presents after having a syncopal episode. Precipitating etiology is not entirely clear though may be related to pain as she reports the sudden onset of severe left arm pain prior to the episode. While hospitalized, a rapid response was called when the patient found unresponsiveness. Patient had a BOWEN and felt tired when she contacted the nurse. Staff found her unresponsive.? Patient's vital signs were stable at the time and labs were unrevealing.? Upon examination the patient's eyelids were fluttering and were fixed and nonreactive.? Patient aroused to sternal rub but became unconscious again. Seizure expected and patient was given 2 mg of Ativan.? Patient regained consciousness at this time and stated that she was very very tired. Patient was postictal state when she was re-evaluated. MRI brain normal. No hx of current alcohol or drug use. She does have a hx of vicodin abuse but UDS negative. Neurology consulted and appreciate their recommendations. Keppra 4000 mg loading dose and then started on Keppra scheduled. EEG wsa read as normal. Carotid Dopplers less than 50% stenosis in left and right ICA. She was complaining of a vague aching discomfort in the anterior chest. PE felt unlikely as she is not SOB, hypoxic, or tachycardic. Plus D-dimer was negative. Troponin negative x3. EKG showing nonspecific T wave changes. Echo was normal. SHe had no further episodes. She was continued on Keppra. She was advised no driving for at least 6 months. She overall did well and was able to be discharged on 06/14/22. Status at Discharge Cognitive/behavioral status at discharge: stable Time Spent with Patient Time attestation: Total time spent providing and/or coordinating discharge services: 35 minutes Time spent: Greater than 30 minutes Exam Narrative: AF 98.4 130/80 66 21 95% ra Gen - NARD Chest - CTA bilaterally, nml RR CV - RRR S1/S2 Abd - Soft, NT/ND, Positive BS Ext - No pedal edema Psych - Nml mood but flat affect Skin - Warm and dry DS: Data Data Completed and Pending Labs on day of discharge: Labs from last 24 hours 06/13/22 04:20 Vitamin B12 358.0 Folate 11.1 Discharge Plan Discharge Attending physician on discharge: Edwin Culver Consulting providers: Celestina Fuller Discharging Clinician: Edwin Culver Anticipated Discharge Date/Time: 06/14/22 14:17 Patient Disposition: Home, Self-Care Activity: no driving Diet: heart healthy Discharge Instructions: No driving or performing any activity alone that might endanger your life (ex: swimming). Take precautions to avoid falls. Rise slowly from a lying or sitting position. Pause before standing or walking. Contact your doctor or call 911 and come to the Emergency Room if you have recurrent seizures or other worrisome symptoms. Follow-up with your primary care provider in 1-2 weeks. Please call for appointment. Follow-up with neurology 1-2 months. Please call for appointment. Thank you for using [facility] for your health care needs. Patient Instructions: Antibiotic Form Stand Alone Forms: General Discharge Infor
== END 2022-06-14 15:35 | disposition home or self-care (01) | DRG 101 ==
LOC: ANHED 12:20 → ANH3MED 13:42 → ANHICU 06-12 13:21
PROVIDERS: Internal Medicine Critical Care Medicine; Physician Assistant; Admitting Provider Hospitalist; Emergency Provider Emergency Medicine; PCP Family Medicine; Visit Provider Internal Medicine
DX: R56.9 Unspecified convulsions (principal); R55 Syncope and collapse; R07.9 Chest pain, unspecified; E03.9 Hypothyroidism, unspecified; R29.700 NIHSS score 0; H65.90 Unspecified nonsuppurative otitis media, unspecified ear; F32.A Depression, unspecified; Z20.822 Contact with and (suspected) exposure to COVID-19; Z98.84 Bariatric surgery status
CPT/HCPCS: 36415; 70450; 70553; 71045; 80048; 80053; 80061; 80307; 81001; 82607; 82746; 82948; 83735; 84439; 84443; 84480; 84484; 85025; 85380; 85610; 85730; 87086; 87426; 93005; 93306; 93880; 94762; 95816; 96374; 96375; 99285; A9270; A9577; C9803; J0696; J1650; J1953; J2060; J2270; J2405; J7050

== ENCOUNTER 2023-09-12 10:03 | Emergency (ER) | payer BC, SELFPAY ==
--- NOTE | ~2023-09-12 | CT_ITS ---
EXAMINATION: CTA brain DATE: 09/12/2023 13:47 INDICATION: Anisocoria TECHNIQUE: Computed tomographic angiography (CTA) of the head was performed without and with 100 mL O mnipaque-350 intravenous contrast. Volume-rendered and maximum intensity projection 3D reconstruction s of the intracranial arteries were created by the technologist on a separate workstation. Automated exposure control and iterative reconstruction technique were employed. The dose-length product was 34 7.56 mGy-cm. COMPARISON: None. FINDINGS: Atherosclerotic plaque, minimal on the left and mild on the right without hemodynamically significant stenosis at the bilateral carotid siphons. There is no hemodynamically significant stenosis in the v ertebral, basilar and internal carotid arteries. Vertebral arteries are codominant. There are no aneu rysms identified. The bilateral A1 and left P1 segments are patent. There is a patent right posterior communicating artery which supplies the right posterior cerebral artery. There is also a patent ante rior communicating artery. Cerebral arterial arborization appears symmetric. No abnormally enhancing brain lesions. IMPRESSION: 1. Normal variant supply the right posterior cerebral artery via a patent right posterior communicati ng artery. Otherwise unremarkable cerebral angiogram with no hemodynamically significant stenosis, an eurysm or dissection. Reviewed, dictated and finalized at location A. IMPRESSION: 1. Normal variant supply the right posterior cerebral artery via a patent right posterior communicating artery. Otherwise unremarkable cerebral angiogram with no hemodynamically significant stenosis, aneurysm or dissection.
--- NOTE | ~2023-09-12 | CT_ITS ---
Non-contrast Head CT History: Headache COMPARISON: 06/11/2022 Technique: Axial non-contrast imaging of the brain was performed. Dose reduction technique was used on this scan by utilizing automated exposure control and iterative reconstruction technique. The dose -length product (DLP) was 529.67 mGy-cm. Findings: There is no evidence of intracranial hemorrhage, mass lesion, or acute infarct. Brain par enchyma appears normal. The ventricles and subarachnoid spaces are normal in size. The calvarium ap pears normal. The visualized paranasal sinuses and mastoid air cells are clear. Impression: No significant abnormality seen. Reviewed, dictated and finalized at location . Impression: No significant abnormality seen.
[2023-09-12 10:11] VITALS: BP 129/73; PULSE 60; RESP 16; TEMP 36.3; O2SAT 99
[2023-09-12] MEDS: ONDANSETRON INJ 4 MG/2 ML VIAL IV PUSH (11:35)
[2023-09-12] MEDS: SODIUM CHLORIDE 0.9% IV 1,000 ML 999 ML IV CONT (11:35)
[2023-09-12] MEDS: KETOROLAC 30 MG/ML VIAL (*BKC) IV PUSH (11:35)
[2023-09-12 11:39] VITALS: BP 158/62; PULSE 53; RESP 16; O2SAT 98
[2023-09-12 12:29] VITALS: BP 116/58; PULSE 59; RESP 16; O2SAT 99
--- NOTE | 2023-09-12 12:40 | ED.GENADULT ---
HPI - General Adult General Chief complaint: Eye Problems Stated complaint: EYE PROBLEM Time Seen by Provider: 09/12/23 11:07 History of Present Illness HPI narrative: Patient is a 57-year-old female who presents ER due to having a dilated left pupil. This has been ongoing for 2 weeks. Over last 3 days she has developed throbbing frontal headache. No numbness or weakness to an arm or leg. No slurred speech. No history of CVA. Cannot describe any aggravating or alleviating factors for the headache. She had no trauma to her eye. She has not been using eyedrops. She denies having recent viral illness. She has not seen an eye doctor Related Data Home Medications Medication Instructions Recorded Confirmed cyanocobalamin (vitamin B-12) 1,000 mcg IM MONTHLY 11/06/21 10/21/22 1,000 mcg/mL injection solution levothyroxine 75 mcg tablet 75 mcg PO DAILY 11/06/21 10/21/22 mirtazapine 30 mg tablet 30 mg PO HS 11/06/21 10/21/22 sertraline 100 mg tablet 150 mg PO HS 06/11/22 10/21/22 hydroxyzine HCl 25 mg tablet 25 mg PO BID PRN 08/04/23 Allergies Allergy/AdvReac Type Severity Reaction Status Date / Time ciprofloxacin [From Cipro] Allergy Hives Verified 09/12/23 10:14 plastic tape AdvReac Intermediate Other Uncoded 08/04/23 13:02 Review of Systems Review of Systems: All systems reviewed & are unremarkable except as noted in HPI and below Constitutional: Constitutional: Reports no additional constitutional complaints Eyes: Eyes: Denies change in vision and Denies photophobia ENT: Reports system reviewed and no additional complaints, except as documented Musculoskeletal: Musculoskeletal: Reports no additional musculoskeletal complaints Neurologic: Reports system reviewed and no additional complaints, except as documented PMFSH Past Medical History Medical History Hypothyroidism Spondylosis Surgical History Surgical History History of ankle surgery History of carpal tunnel release History of cervical spinal surgery Cage from C5-C7. History of section History of cholecystectomy History of gastric bypass History of hysterectomy History of tonsillectomy Family History Family History Mother Uterine cancer Father Heart disease Social History Social History Social History: Surrogate medical decision maker: Paras Brunson, son. Code status: Full code. Caffeine-coffee Smoking status: Never smoker Alcohol intake: current Drinks per week: 1 Alcohol use details: Occasionally Substance use: never Substance use type: does not use Do You Feel Safe in your Home?: Yes Lack of Transportation: No Lack of Food: Sometimes True Current Housing: I Have Housing Concerned About Future Housing: No Difficulty Paying Gas/Electric Bills: No Difficulty Paying for Meds: No Currently Unemployed: No Education: High School Diploma/GED Difficulty w/ Childcare or Family Care: No Living arrangements: with family Additional living arrangements comments: Lives in [place]. Her son, [id number], and 3 grandchildren live with her. Additional occupation/education comments: Works for [employer]. Gender identity (if verbalized by the patient): Female Spiritual care concerns: No Exam Narrative: GENERAL: Well-appearing, well-nourished, and in no acute distress. HEAD: Normocephalic, atraumatic. EYES: Anisocoria with the left pupil slightly more dilated than the right. Both pupils are reactive to light and accommodation. ENT: Mucous membranes moist. CHEST: Clear to auscultation. No respiratory distress. HEART: Regular rate and rhythm. Normal peripheral pulses. EXTREMITIES: Normal range of motion. No edema. SKIN: Warm, dry, no rash. NEURO: Alert and
[2023-09-12] MEDS: MORPHINE SULFATE (*CRX) 2 MG/ML INJ IV PUSH (12:50)
[2023-09-12 13:09] LABS: Estimated CRCL calculation 95 ml/min; Estimated Glomerular Filt Rate > 60
[2023-09-12 15:12] VITALS: BP 117/49; PULSE 58; RESP 18; TEMP 36.6; O2SAT 99
== END 2023-09-12 15:14 | disposition home or self-care (01) ==
PROVIDERS: Emergency Provider Emergency Medicine; PCP Family Medicine
DX: H57.02 Anisocoria (principal); R51.9 Headache, unspecified; E03.9 Hypothyroidism, unspecified; Z98.84 Bariatric surgery status; Z90.49 Acquired absence of other specified parts of digestive tract; Z90.710 Acquired absence of both cervix and uterus; Z79.899 Other long term (current) drug therapy
CPT/HCPCS: 36415; 70450; 70496; 82565; 96361; 96374; 96375; 99284; J1885; J2270; J2405; J7030; Q9967

== ENCOUNTER 2023-10-21 07:29 | Outpatient (CLI) | payer BC, SELFPAY ==
--- NOTE | ~2023-10-21 | CT_ITS ---
EXAMINATION: CTA BRAIN/CAROTID DATE: 10/21/2023 09:01 INDICATION: Anisocoria TECHNIQUE: Computed tomographic angiography (CTA) of the head and neck was performed with 100 mL Omni paque-350 intravenous contrast. Multiplanar reconstructions and maximum intensity projection 3D-recon structions of the carotid arteries and of the intracranial arteries were created by the technologist on a separate workstation. Precontrast CT of the head was also obtained. Automated exposure control and iterative reconstruction technique were employed.The dose-length product was 1376.17 mGy-cm. COMPARISON: None. FINDINGS: Carotid arteries: Visualized aortic arch is normal in caliber with no dissection. No evident atherosclerotic plaque or stenosis involving the arteries arising from the aortic arch. There is no evident plaque with 0% sten osis of the right and left carotid bulbs relative to normal distal artery lumen diameter (NASCET crit eria). Bilateral vertebral arteries are codominant with no atherosclerotic plaque or stenosis. Shortn ess of the lungs are clear. Surgical soft tissues are unremarkable. C5-C7 anterior spinal fusion with interbody fusion devices at both levels and anterior plate and screw fixation. Head: No acute intracranial hemorrhage, acute infarction or abnormal extra axial fluid collection. Ventricl es are normal and symmetric. No mass/mass effect. The orbits, paranasal sinuses and mastoid air cells are normal. Intracranial arteries Bilateral vertebral arteries are codominant. Minimal atherosclerotic plaque without hemodynamic signi ficant stenosis of the bilateral carotid siphons. There is no hemodynamically significant stenosis in the vertebral, basilar and internal carotid arteries. There are no aneurysms identified. Both A1 an d left P1 segments are patent. The right posterior cerebral arteries supplied by a patent right poste rior communicating artery. There is also a patent anterior to indicating artery. Cerebral arterial ar borization appears symmetric. No abnormally enhancing brain lesions. IMPRESSION: 1. 0% stenosis of the right and left carotid bulbs relative to normal distal artery lumen diameter (N ASCET criteria). 2. Normal head CT and cerebral CT angiogram with no aneurysm or hemodynamically significant stenosis. Reviewed, dictated and finalized at location A. IMPRESSION: 1. 0% stenosis of the right and left carotid bulbs relative to normal distal ar donny lumen diameter (NASCET criteria). 2. Normal head CT and cerebral CT angiogram with no aneurysm or hemodynamically significant stenosis.
--- NOTE | ~2023-10-21 | MR_ITS ---
EXAMINATION: MR brain/brain stem wo con DATE: 10/21/2023 08:04 INDICATION: Anisocoria TECHNIQUE: Magnetic resonance imaging (MRI) of the brain and brainstem was performed without intraven ous contrast. Sequences included sagittal and axial T1-weighted SE, axial diffusion-weighted FS SE, a xial T2*-weighted GRE, axial T2-weighted FLAIR, and axial T2-weighted FSE. Apparent diffusion coeffic ient (ADC) maps were created. COMPARISON: 06/11/2022 FINDINGS: There are no areas of restricted diffusion to suggest acute infarction. No intracranial hemorrhage or abnormal intracranial mass lesion. There are no intraparenchymal signal abnormalities seen on the ot her pulse sequences. The ventricles are symmetric and normal in size. There are no abnormal extra-axi al fluid collections. Flow voids are seen in the cerebral arteries on the T2-weighted sequences consi stent with their expected patency. Visualized orbits and soft tissues are unremarkable. IMPRESSION: 1. Normal brain MR. Reviewed, dictated and finalized at location A. IMPRESSION: 1. Normal brain MR.
== END 2023-10-21 07:30 ==
LOC: MICIMG 07:30
PROVIDERS: PCP Family Medicine; Visit Provider Psychiatry & Neurology Neurology
DX: H57.02 Anisocoria (principal); R51.9 Headache, unspecified; R56.9 Unspecified convulsions
CPT/HCPCS: 70496; 70498; 70551; Q9967

== ENCOUNTER 2024-10-03 14:02 | Outpatient (CLI) | payer BC, SELFPAY ==
--- NOTE | ~2024-10-03 | MR_ITS ---
EXAMINATION: MR orbits face neck wo/w con DATE: 10/03/2024 15:05 INDICATION: Mydriasis TECHNIQUE: Magnetic resonance imaging (MRI) of the brain, brainstem, and orbits was performed without and with 17 mL Multihance intravenous contrast. Sequences included axial, sagittal and coronal T1-we ighted SE, axial and coronal T2-weighted FS FSE and axial and coronal T1-weighted FS FSE. COMPARISON: Brain MR dated 10/21/2023 FINDINGS: Orbits are normal. Visualized portions of the brain are unremarkable. Flow voids are seen in the cere bral arteries on the T2-weighted sequences consistent with their expected patency. No aneurysms ident ified. Basal cisterns are patent. The pituitary gland and bilateral cavernous sinuses appear normal. No abnormal masses or enhancement identified along the course of the bilateral 3rd cranial nerves. Vi sualized portions of the ventricles are symmetric and normal in size. There are no abnormal extra-axi al fluid collections. There are no areas of abnormal enhancement on the post contrast images. IMPRESSION: 1. Normal MRI of the orbits. Reviewed, dictated and finalized at location A.
--- OUTSIDE RECORDS SUMMARY | 2024-10-03 14:12 | XMS_ITS | Clinical Summary ---
Author Organization [facility] Address [address] [place] [address] Care Team Providers Care Almond Paste Mixer Name Role Phone Ken Medley MD Primary Care Provider [phone] Sara Henning RN Unavailable Unavaila ble Yaneli Caldwell RN Unavailable Felicita vailable Allergies Active Allergy Reactions Criticality Noted Date Comments Adhesive Tape-Silicones Ciprofloxacin Hives Medium Medications valACYclovir (VALTREX) 1 gram tablet Take 2 tablets (2,000 mg total) by mouth 2 (two) times a day 021 Active triamcinolone (KENALOG) 0.1 % creamIndications: Dermatitis Apply to affected area on abdomen 2 times daily as needed. Avoid face and groin. 80 g 5 022 Active albuterol HFA (PROVENTIL HFA,VENTOLIN HFA,PROAIR HFA) 90 mcg/actuation inhaler Inhale 2 puffs every 6 (six) hours as needed for wheezing 3 each 4 022 Active tolnaftate (TINACTIN) 1 % cream Apply topically 2 (two) times a day 30 g 2 024 Active syringe with needle (BD Luer-Cristiana Syringe) 3 mL 21 gauge x 1 syringeIndication s:Vitamin B12 deficiency USE MONTHLY FOR VITAMIN B12 INJECTION 100 each 11 024 Active levothyroxine (SYNTHROID) 75 mcg tabletIndications :Acquired hypothyroidism TAKE 1 TABLET BY MOUTH DAILY 30 tablet 5 025 Active levETIRAcetam (KEPPRA) 1,000 mg tablet TAKE 1 AND 1/2 TABLETS BY MOUTH EACH MORNING AND TAKE 1 TABLET EACH EVENING 225 tablet 3 025 Active Additional Information Patient taking differently: TAKE 1 AND 1/2 TABLETS BY MOUTH EACH MORNING AND TAKE 1 and 1/2 TABLET EACH EVENING, Reported on 07/13/2024 gabapentin (NEURONTIN) 300 mg capsuleIndication s:Spondylosis of cervical joint without myelopathy Take 1 capsule (300 mg total) by mouth 3 (three) times a day 270 capsule 025 Active ketorolac (TORADOL) 10 mg tablet TAKE 1 TABLET (10 MG) BY MOUTH EVERY 6 HOURS NEEDED FOR PAIN 20 tablet 025 Active gabapentin (NEURONTIN) 300 mg capsuleIndication s:Spondylosis of cervical joint without myelopathy TAKE 1 CAPSULE BY MOUTH THREE TIMES DAILY 300 capsule 025 Active cyanocobalamin (Vitamin B-12) 1,000 mcg/mL injectionIndicati ons:Vitamin B12 deficiency INJECT 1 ML INTO THE MUSCLE INSTRUCTED EVERY 30 DAYS 3 mL 9 025 Active mirtazapine (REMERON) 30 mg tabletIndications :Sleep difficulties,Mode rate episode of recurrent major depressive disorder (HCC) TAKE 1 TABLET(30 MG) BY MOUTH EVERY NIGHT 90 tablet 3 025 Active sertraline (ZOLOFT) 100 mg tablet TAKE 2 TABLETS (200 MG ) BY MOUTH DAILY 200 tablet 025 Active hydrOXYzine (ATARAX) 25 mg tablet Take 1 tablet (25 mg total) by mouth every 6 (six) hours as needed for itching 400 tablet 025 Active cyanocobalamin (Vitamin B-12) 1,000 mcg/mL injectionIndicati ons:Vitamin B12 deficiency INJECT ONE ML INTO THE MUSCLE INSTRUCTED EVERY 30 DAYS 3 mL 9 024 2024 Discontinued mirtazapine (REMERON) 30 mg tabletIndications :Sleep difficulties,Mode rate episode of recurrent major depressive disorder (HCC) TAKE 1 TABLET(30 MG) BY MOUTH EVERY NIGHT 90 tablet 3 024 2024 Discontinued hydrOXYzine (ATARAX) 25 mg tablet TAKE 1 TABLET(25 MG) BY MOUTH EVERY 6 HOURS NEEDED FOR ANXIETY 400 tablet 025 2024 Discontinued(R eorder) sertraline (ZOLOFT) 100 mg tablet TAKE 2 TABLETS(200 MG) BY MOUTH DAILY 200 tablet 025 2024 Discontinued(R eorder) gabapentin (NEURONTIN) 300 mg capsuleIndication s:Spondylosis of cervical joint without myelopathy TAKE 1 CAPSULE BY MOUTH THREE TIMES DAILY 300 capsule 025 2024 Discontinued ketorolac (TORADOL) 10 mg tablet TAKE 1 TABLET(10 MG) BY MOUTH EVERY 6 HOURS NEEDED FOR PAIN 20 tablet 025 2024 Discontinued(R eorder) Active Problems Problem Noted Date Diagnosed Date Anisocoria 07/27/2024 Otalgia of both ears 07/27/2024 TMJ (temporomandibular joint disorder) Migraine without aura and wi thout status migrainosus, not intractable 07/22/2024 Assessment & Plan (07/22/2024 10:42 AM CDT): Reivweed trigger avoidance and will follow response. Obesity (BMI 30.0-34.9) 01/15/2024 Assessment & Plan (01/15/2024 3:02 PM POSTAL SERVICE MAIL PROCESSOR): As above. Seizure disorder 04/27/2023 Assessment & Plan (07/22/2024 10:41 AM CDT): Continues on keppra and will follow response. Assessment & Plan (01/15/2024 3:01 PM POSTAL SERVICE MAIL PROCESSOR): Continues on keppra and no breakthrough seizure activity. Sleep difficulties 10/06/2021 Assessment & Plan (10/07/2021 10:41 PM CDT): Mirtazapine increased from 15mg to 30mg qhs. Reviewed good sleep hygiene: no electronics, cool/dark room, warm shower/tub prior to bedtime, no caffeine after 3-4p, no exercise 3hr prior to sleep. Dermatitis 10/06/2021 Assessment & Plan (10/07/2021 10:42 PM CDT): Triamcinolone cream sent for rash on abdomen. To start antifungal for rash c/w candidiasis under pannus/in groin. Reviewed skin care. Class 1 obesity due to exces s calories with serious comorbidity and body mass index (BMI) of 30.0 to 30.9 in adult 10/06/2021 Assessment & Plan (10/07/2021 10:42 PM CDT): Reviewed need to lose weight, reviewed health benefits. Reviewed recommendations for daily intake & activity 20-30 minutes/day. Discussed healthy diet and importance of regular physical activity. Chronic MARY (middle ear effusion), bilateral 10/2021 Assessment & Plan (10/07/2021 10:43 PM CDT): Antihistamines (zyrtec, hilary, claritin, benadryl) for runny nose as well as flonase nasal spray. Discussed possible ENT eval if no improvement. Reviewed red flags; what would warrant rtc. Moderate episode of recurrent major depressive d isorder 08/18/2021 Assessment & Plan (07/22/2024 10:42 AM CDT): Mood is stable on sertraline and will follwor esponse. Assessment & Plan (01/15/2024 3:01 PM POSTAL SERVICE MAIL PROCESSOR): Stable on sertraline and benefits from mirtazapine related to sleep disorder as well. Assessment & Plan (10/07/2021 10:40 PM CDT): Sertraline 150mg daily. Will increase Mirtazapine from 15mg qhs to 30mg qhs. Will call/rtc if no improvement. Reports fair control of depression w/current regimen. Reviewed med Ses & scheduling. Reviewed red flags. Assessment & Plan (08/21/2021 7:51 AM CDT): Sertraline 100mg nightly increased to 150mg daily. Mirtazapine 15mg qhs sent. Reports poor control of depression w/current regimen. Reviewed med Ses & scheduling. Reviewed red flags. F/u appt made for 10/06/21. Aware to call/rtc sooner if worsening depression or thoughts of SI/HI (denies). Electronic cigarette use 06/09/2020 Assessment & Plan (10/07/2021 10:39 PM CDT): Precontemplative. Encouraged complete smoking cessation. Discussed different types of medications & toaq-qel-nayrwyq aides to help with cessation. Assessment & Plan (08/21/2021 7:50 AM CDT): Precontemplative. Encouraged complete smoking cessation. Discussed different types of medications & cjgx-rwm-egzotdm aides to help with cessation. Assessment & Plan (06/09/2020 9:54 PM CDT): Precontemplative. Encouraged complete smoking cessation. Discussed different types of medications & kyoy-zym-omqquhh aides to help with cessation. Anemia 06/09/2020 Assessment & Plan (06/09/2020 9:53 PM CDT): Reviewed CBC[facility] in from [facility]. Has been taking iron at home. CBC ordered & will have drawn in 2-[address] Colon. Mrs Brunson has seen Dr Colon in past; has his contact info. Aware to watch for blood loss (stool, urine). Aware to check her mychart for results when she has labs drawn. Reviewed red flags. Iron deficiency anemia, unspecified 06/01/2020 Assessment & Plan (05/06/2021 12:50 AM POSTAL SERVICE MAIL PROCESSOR): Hemoglobin is normal. Will hold iron supplements for now. Assessment & Plan (06/01/2020 4:14 AM CDT): Noted on labs last month. Will start patient on iron supplements. Patient may also have PICA as she has been asking for ice last evening. Annual physical exam 04/08/2020 Assessment & Plan (08/21/2021 7:50 AM CDT): 1. Eat a healthy diet: focus on lean meats and proteins, more fruits, vegetables and whole grains and low in sugars and fats. Limit red meat and avoid processed meat. 2. Maintain a healthy weight; avoid being overweight. Aim for a normal body mass index (BMI) of 18.5-24.9. Help learning to eat healthier, we can set up appointment with deputy program manager/postpartum rn. 3. Have an active lifestyle, strive for 30 minutes of moderate exercise 5 times a week and strength or resistance training at least twice a week. 4. Use broad-spectrum (UVA+UVB) sunscreen with SPF 30 or greater, is water resistant, limit time spent in the sun (10 am-4pm), wear hat, wear UV protective clothing, wear sunglasses. Never use a tanning bed. Skin that was irradiated may be more sensitive over your lifetime. 5. Does smoke e-cigarettes w/nicotine; declines participate in a smoking cessation program. 6. Limit alcohol intake, 1 drink per day for a woman. Assessment & Plan (04/08/2020 9:13 AM POSTAL SERVICE MAIL PROCESSOR): Mammogram order given; will call with results when received. Encouraged to perform monthly SBE. Will have done at [facility]. Hyperglycemia 04/08/2020 Assessment & Plan (04/08/2020 9:14 AM POSTAL SERVICE MAIL PROCESSOR): TQ=123 last year. A1c ordered as well as CMP. Fever blister 04/08/2020 Assessment & Plan (04/08/2020 9:14 AM POSTAL SERVICE MAIL PROCESSOR): Valacyclovir sent with refills for any future outbreaks. Aware to take 2 tabs at onset & 2 tabs 12 hrs later. Reviewed highly contagious. Does have prodromal sensation. Can p/u abbreva also. Discussed lysine otc to help additionally. Reviewed skin care; signs of secondary infxn. Reviewed red flags. s/p C5-6 and C6-7 ACDF on 06/20/2018 06/20/2018 Occipital neuralgia of left side 12/29/2017 Assessment & Plan (07/22/2024 10:41 AM CDT): Continues f/u with neurology and will monitor for clinical recurrence/progression. Complex regional pain syndro me type 2 of left lower extremity 09/28/2017 Assessment & Plan (07/22/2024 10:41 AM CDT): Continues gabaapentin and remeraon for sleep agent. Will monitor response. Assessment & Plan (01/15/2024 3:00 PM POSTAL SERVICE MAIL PROCESSOR): Continues on gabapentin. Continue on moblity as tolerated and movement ad deedee. Vitamin B12 deficiency 08/29/2017 Assessment & Plan (04/07/2019 12:57 PM POSTAL SERVICE MAIL PROCESSOR): H/o gastric bypass surgery. Has not had labs drawn since 05/2018. Will contact w/results once rec'd. Spondylosis of cervical joint without myelopathy 04/14/2017 Assessment & Plan (08/21/2021 7:53 AM CDT): Refilled gabapentin. Helpful for neck and foot pain. No further opioids. Assessment & Plan (04/08/2020 9:13 AM POSTAL SERVICE MAIL PROCESSOR): Remains off opioids. Takes gabapentin for neck/foot pain. Reviewed med SE & scheduling. History of renal calculi 04/20/2016 Overview (06/04/2016): History of kidney stones Hypothyroidism 09/23/2015 Overview (06/05/2016): Hypothyroidism, unspecified type Assessment & Plan (07/22/2024 10:40 AM CDT): Clincially euthryodi. Will continue to follow response. Continue to follow tfts. Assessment & Plan (01/15/2024 3:02 PM POSTAL SERVICE MAIL PROCESSOR): Clinically euthryoid. Continue to follow TFTs. Assessment & Plan (08/18/2021 8:21 AM CDT): Has not had TSH checked since last year. Lab Results Component Value Date TSH 6.60 (H) 08/28/2020 TSH 0.03 (L) 04/18/2020 TSH 9.83 (H) 05/07/2019 Reviewed past TSH. Will repeat TFTs. Aware to check mychart. Will contact her w/results. Levothyroxine 75mcg daily. TSH/T4 ordered; will contact with results when received. Reviewed med SE & scheduling. Reviewed sxs hypo/hyperthyroidism. No changes at this time. Assessment & Plan (05/06/2021 12:50 AM POSTAL SERVICE MAIL PROCESSOR): Continue levothyroxine Assessment & Plan (06/01/2020 4:12 AM CDT): Continue levothyroxine Assessment & Plan (04/08/2020 9:12 AM POSTAL SERVICE MAIL PROCESSOR): Lab Results Component Value Date TSH 9.83 (H) 05/07/2019 TSH 3.50 06/16/2018 TSH 6.56 (H) 09/09/2017 Reviewed past TSH. Will repeat TFTs. Aware to check mychart. Will contact her w/results. Levothyroxine 75mcg daily (was increased from 50mcg). Did not repeat labs last year. Assessment & Plan (04/07/2019 12:50 PM POSTAL SERVICE MAIL PROCESSOR): TSH/T4 ordered; will call w/results when rec'd. Reviewed med Ses & scheduling. Reviewed sxs hypo/hyperthyroidism. No changes at this time. BMI 31.0-31.9,adult 06/28/2014 Assessment & Plan (01/15/2024 3:01 PM POSTAL SERVICE MAIL PROCESSOR): Encoruage 150min/week aerobic exericse. Healthy food choices. Resolved Problems Problem Noted Date Diagnosed Date Resolved Date E-coli UTI 05/07/2021 08/18/2021 Pyelonephritis 05/07/2021 08/21/2021 Pain of upper abdomen 05/05/20212021 Assessment & Plan (05/06/2021 12:55 AM POSTAL SERVICE MAIL PROCESSOR): Abdomen tender to palpation. Associated with nausea and vomiting. Patient is status post cholecystectomy. Total bilirubin is normal. Suspect gastritis versus PUD. Patient did have some chest pain with shortness of breath earlier in the ER that resolved. EKG does not show any ST changes. Will check troponin and place patient on tele. Will trial IV Protonix. Continue supportive care. Will decrease morphine to 2 mg as patient is feeling d oped up after receiving 4 mg. Hold NSAIDs for now. BMI 28.0-28.9,adult 06/09/2020 08/19/19 Assessment & Plan (06/09/2020 11:19 AM CDT): Reviewed need to lose weight, reviewed health benefits. Reviewed recommendations for daily intake & activity 20-30 minutes/day. Discussed healthy diet and importance of regular physical activity. 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 Has been taking tamsulosin. Has increased water intake. Can take tylenol for pain but has not really been taking. Assessment & Plan (06/01/2020 4:20 AM CDT): Suspect musculoskeletal etiology as it is worsen when patient turns her torso to the right and is reproducible with palpation. Patient states she cannot use a Lidoderm patch as adhesives t ears off my skin . Will order Voltaren gel p.r.n. will DC Dilaudid as patient is tolerating p.o.. Attempted to order patient p.r.n. [place] however patient refused and told RN she used to be addicted to [place]. Patient was offered tramadol which she agreed. Will order p.r.n. tramadol. Nephrolithiasis 05/31/2020 08/21/2021 Assessment & Plan (06/01/2020 4:17 AM CDT): Patient does have a stable 3 mm kidney stone in the left upper pole of her kidney however it appears to have been present from 2017 when it was noted on a renal ultrasound and was 5 mm. Low suspicion that this stone is causing patient any pain. BMI 29.0-29.9,adult 04/08/2020 10/08/19 22 Assessment & Plan (08/21/2021 7:49 AM CDT): Reviewed need to lose weight, reviewed health benefits. Reviewed recommendations for daily intake & activity 20-30 minutes/day. Discussed healthy diet and importance of regular physical activity. Assessment & Plan (04/08/2020 8:54 AM POSTAL SERVICE MAIL PROCESSOR): Reviewed need to lose weight, reviewed health benefits. Reviewed recommendations for daily intake & activity 20-30 minutes/day. Discussed healthy diet and importance of regular physical activity. Encounter for screening for lipoid disorders 0 06/09/2020 Assessment & Plan (04/08/2020 8:54 AM POSTAL SERVICE MAIL PROCESSOR): Lipid panel ordered; will call w/results when received. Reviewed diet/exercise recommendations. Assessment & Plan (04/07/2019 12:58 PM POSTAL SERVICE MAIL PROCESSOR): Lipid panel ordered; will call w/results when received. Reviewed diet/exercise recommendations. Encounter for screening mamm ogram for breast cancer 04/06/2019 04/08/2020 Assessment & Plan (04/07/2019 1:00 PM POSTAL SERVICE MAIL PROCESSOR): Mammogram order given; will call with results when received. Encouraged to perform monthly SBE. Tobacco dependence 04/06/2019 2 Assessment & Plan (06/09/2020 11:42 AM CDT): Electronic cigarette. No longer smoking cigarettes. Assessment & Plan (04/08/2020 8:53 AM POSTAL SERVICE MAIL PROCESSOR): Vaping. Precontemplative. Encouraged complete smoking cessation. Discussed different types of medications & tcjd-pjz-lzzsyhh aides to help with cessation. Assessment & Plan (04/06/2019 2:15 PM POSTAL SERVICE MAIL PROCESSOR): Precontemplative. Encouraged complete smoking cessation. Discussed different types of medications & mmdr-leo-ayyudee aides to help with cessation. Need for influenza vaccination 04/06/2019 06/09/2020 Assessment & Plan (04/08/2020 8:53 AM POSTAL SERVICE MAIL PROCESSOR): Flu vaccine given today. Discussed possible tenderness/redness at injection site. Assessment & Plan (04/06/2019 2:15 PM POSTAL SERVICE MAIL PROCESSOR): Flu vaccine given today. Discussed possible tenderness/redness at injection site. BMI 27.0-27.9,adult 04/06/2019 04/08/19 Assessment & Plan (04/06/2019 2:15 PM POSTAL SERVICE MAIL PROCESSOR): Discussed healthy diet and importance of regular physical activity. BMI is acceptable for this patient. Withdrawal symptoms, drug or narcotic 08/16/2018 04/06/2019 Refused influenza vaccine 05/15/2018 Cervical spondylosis with bi lateral C6 and C7 radiculopathy 03/22/2018 04/08/2020 Mild episode of recurrent ma marco a depressive disorder 08/29/2017 04/08/2020 Pain in joint involving multiple sites 04/14/2017 04/08/2020 Long-term current use of opiate analgesic 04/14/2017 06/09/2020 Bilateral carpal tunnel syndrome 04/14/2017 04/07/2019 Cervical radiculopathy 04/14/201704/07 Cervicalgia 04/14/2017 04/07/2019 Cervical spinal stenosis 04/14/201709/2019 Syncope 03/04/2016 04/06/2019 Overview (06/03/2016): Syncope, unspecified syncope type Mixed anxiety depressive disorder 09/23/2015 08/18/2021 Overview (06/05/2016): Anxiety and depression Assessment & Plan (05/06/2021 12:50 AM POSTAL SERVICE MAIL PROCESSOR): Continues sertraline Assessment & Plan (06/01/2020 4:12 AM CDT): Continue Zoloft Assessment & Plan (04/08/2020 9:12 AM POSTAL SERVICE MAIL PROCESSOR): Reports good control of depression/anxiety w/current regimen. No changes to be made at this time. Reviewed med Ses & scheduling. Reviewed red flags. Assessment & Plan (04/07/2019 12:52 PM POSTAL SERVICE MAIL PROCESSOR): Reports good control of anxiety/depression w/current regimen. No changes to be made at this time. Reviewed med Ses & scheduling. Reviewed red flags. Cubital tunnel syndrome 07/31/201509/2019 Radial styloid tenosynovitis 07/31/2015 04/07/2019 Injury of ulnar nerve 05/06/20152019 Carpal tunnel syndrome 05/05/201504/07 Pain in wrist 01/10/2015 04/07/2019 Overview (06/03/2016): Wrist pain Epigastric pain 12/14/2013 04/07/2019 Never smoked tobacco 04/13/2011 020 Morbid obesity 10/21/2009 04/07/2019 Encounters Date Type Department Care Team Description 09/04/2024 Telephone [facility]mology [address] [place] [address] Outpatient Health [address] [place] [phone] Luiz Palomares MD 08/27/2024 Documentation [facility] Outpatient Health [address] [place] [phone] Gisele Carbone 08/27/2024 Telephone [facility] [place] [address] Luiz Palomares MD [facility] 08/27/2024 Telephone [facility] [address] [place] [address] Outpatient Health [address] [place] [phone] Leigh Ann Infante MD 07/27/2024 Telephone [facility] [place] [address] Ej Carbone MD 07/13/2024 3:00 PM CDT [facility] Visit [facility] [address] [place] [address] Ken Medley MD Hypothyroidism, unspecified type (Primary Dx); Complex regional pain syndrome type 2 of left lower extremity; Occipital neuralgia of left side; Seizure disorder (HCC); Moderate episode of recurrent major depressive disorder (HCC); Migraine without aura and without status migrainosus, not intractable; BMI 32.0-32.9,adult; Obesity (BMI 30.0-34.9); Lipid screening 07/09/2024 Telephone [facility] [address] [place] [address] Ken Medley MD Forms Request from Last 3 Months Immunizations Immunization Administration Dates Next Due Influenza, Quadrivalent, Spl it, Preservative Free, Intramuscular 04/08/2020,04/06/2019,12/17/2015,12/26,11/28/2014 Influenza, Trivalent, Preser vative Free, Intramuscular 12/11/2013 Influenza, Unspecified 04/27/2023(Deferr ed: Patient Refused),10/29/2022(Deferred: Patient Refused),07/01/2022(Deferred: Patient Refused),07/01/2022(Deferred: Patient Refused),01/04/2022(Deferred: Patient Refused),10/29/2021(Deferred: Patient Refused),10/29/2021(Deferred: Patient Refused),02/28/2021(Deferred: Patient Refused),02/29/2020(Deferred: Patient Refused),05/15/2018(Deferred: Patient Refused),05/15/2018(Deferred: Patient Refused),02/28/2018(Deferred: Patient Refused),10/10/2017(Deferred: Patient Refused),03/07/2017(Deferred: Patient Refused),02/28/2017(Deferred: Patient Refused),02/28/2017(Deferred: Patient Refused),03/01/2016(Deferred: Patient Refused) Pfizer SARS-CoV-2 Monovalent Vaccination (12+ Yrs) PURPLE 05/05/2021(Deferred: Patient Refused) Tdap 02/01/2019,07/18/2012 Surgical History Surgery Date Site/Laterality Comments CARPAL TUNNEL RELEASE Bilateral Carpal tunnel release BREAST CYST EXCISION GASTRIC BYPASS TONSILLECTOMY CHOLECYSTECTOMY HYSTERECTOMY SECTION SPINAL FUSION 06/20/2018 Anterior Cervical Discectomy and Fusion C5-6 and C6-7 ANTERIOR FUSION CERVICAL SPINE 06/20/2018 Medical History Medical History Date Comments Adiposity 2007 Obesity Disorder of thyroid Thyroid dise ase Kidney stone Hypothyroidism Arthritis Chronic pain disorder Depression Diabetes mellitus (HCC) was type 2. it has been resolved since 2008 Cervical disc disorder Joint pain both thumbs Neck pain Traumatic injury passed out and fell due to medication Carpal tunnel syndrome 05/05/2015 Injury of ulnar nerve 05/06/2015 Cubital tunnel syndrome 07/31/2015 Radial styloid tenosynovitis 07/31/2015 Bilateral carpal tunnel syndrome 04/14/2017 Cervical radiculopathy 04/14/2017 Cervicalgia 04/14/2017 Cervical spinal stenosis 04/14/2017 Family History Medical History Relation Name Comments Diabetes type II Maternal Grandfather Caren chow mellitus type 2; Ovarian cancer Maternal Grandmother Cance r, ovarian; Cervical cancer Mother Cancer, cerv ical; Breast cancer Mother's Sister 1 Cervical cancer Mother's Sister 2 Cancer, cervical; Colon cancer Paternal Grandfather Cancer, colon; Relation Name Status Comments Father Alive Maternal Grandfather Alive Maternal Grandmother Alive Mother (Age 39) Mother's Sister 1 Alive Mother's Sister 2 Paternal Grandfather Alive Social History Tobacco Use Types Packs/Day Years Used Date Smoking Tobacco: Former Cigarettes Smokeless Tobacco: Current Tobacco Cessation:Ready to Q uit: Not Asked; Counseling Given: Not Answered Comments:uses vaporizer Alcohol Use Standard Drinks/Week Comments Yes 0 (1 standard drink = 0.6 oz pur e alcohol) monthly [facility] Utilities Answer Date Recorded In the past 12 months has [employer], oil, or water [employer] threatened to shut off services in your home? No 04/27/2023 Humiliation, Afraid, Rape, and Kick questionnair e Answer Date Recorded Within the last year, have y ou been afraid of your partner or ex-partner? No 04/27/2023 Within the last year, have y ou been humiliated or emotionally abused in other ways by your partner or ex-partner? No Within the last year, have y ou been kicked, hit, slapped, or otherwise physically hurt by your partner or ex-partner? No 04/27/2023 Within the last year, have y ou been raped or forced to have any kind of sexual activity by your partner or ex-partner? No 04/27/2023 Social Connection and Isolat ion Panel [NHANES] Answer Date Recorded In a typical week, how many times do you talk on the phone with family, friends, or neighbors? More than three times a week 04/27/2023 How often do you get togethe r with friends or relatives? More than three times a week 04/27/2023 How often do you attend chur ch or amish services? Never 04/27/2023 Do you belong to any clubs o r organizations such as gnosticist groups, unions, fraternal or athletic groups, or school groups? No 04/27/2023 How often do you attend meet ings of the clubs or organizations you belong to? Never 04/27/2023 Are you , , di vorced, , never , or living with a partner? 04/27/2023 AUDIT-C Answer Date Recorded Q1: How often do you have a drink containing alc ohol? Monthly or less 04/27/2023 Q2: How many drinks containi ng alcohol do you have on a typical day when you are drinking? 1 or 2 04/27/2023 Q3: How often do you have si x or more drinks on one occasion? Never 04/27/2023 Overall Financial Resource Strain (CARDIA) Answe r Date Recorded How hard is it for you to pa y for the very basics like food, housing, medical care, and heating? Not hard at all 04/27/2023 PHQ-2 Answer Date Recorded PHQ-2 Total Score (If total score is 3 or more points, staff should administer the PHQ-9) 0 01/06/2024 [facility] Occupat ional Health - Occupational Stress Questionnaire Answer Date Recorded Do you feel stress - tense, restless, nervous, or anxious, or unable to sleep at night because your mind is troubled all the time - these days? Rather much 04/27/2023 Exercise Vital Sign Answer Date Recorde d On average, how many days pe r week do you engage in moderate to strenuous exercise (like a brisk walk)? 0 days 04/27/2023 On average, how many minutes do you engage in exercise at this level? 0 min 04/27/2023 Hunger Vital Sign Answer Date Recorded Within the past 12 months, y ou worried that your food would run out before you got the money to buy more. Never true 04/27/19 24 Within the past 12 months, t he food you bought just didn't last and you didn't have money to get more. Never true 04/27/2023 PRAPARE - Transportation Answer Date Re corded In the past 12 months, has l ack of transportation kept you from medical appointments or from getting medications? No 04/01 In the past 12 months, has l ack of transportation kept you from meetings, work, or from getting things needed for daily living? No 04/27/2023 Housing Stability Vital Sign Answer Antonio e Recorded In the last 12 months, was t here a time when you were not able to pay the mortgage or rent on time? No 04/27/2023 In the last 12 months, how many places have you lived? 1 04/27/2023 In the last 12 months, was t here a time when you did not have a steady place to sleep or slept in a group home (including now)? No 04/27/2023 Personal Safety Answer Date Recorded Have you ever been in or are you currently in a harmful physical or emotional relationship or is someone making you feel afraid or unsafe? 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 Gender Identity Not on file Sexual Orientation Not on file Obstetrics History Para Term AB IAB SAB Ectopic Multiple Livin g Live Births 2 2 2 Date Outcome GA Total Labor Labor/2nd/3rd Weight Sex Type Anes PTL Xena A1 A5 Name Clin Term Term Last Filed Vital Signs Vital Sign Reading Time Taken Comments Blood Pressure 124/82 07/13/2024 3:02 PM CDT Pulse 83 07/13/2024 3:02 PM CDT Temperature 36.8 C (98.2 F) 07/13/2024 3:02 PM CDT Respiratory Rate 18 07/13/2024 3:02 PM CDT Oxygen Saturation 98% 07/13/2024 3:02 PM CDT room air Inhaled Oxygen Concentration - - Weight 84.8 kg (187 lb) 07/13/2024 3:02 PM CDT Height 162.2 cm (5' 3.86) 07/13/2024 3:02 PM CD T Body Mass Index 32.24 07/13/2024 3:02 PM CDT Plan of Treatment Health Maintenance Due Date Last Done Comments Hepatitis C Screening 1965 Hepatitis B Screening 12/29/1985 Zoster Vaccine (1 of 2) 12/29/2017 Breast Cancer Screening-Mammogram 05/19/2022 05/19/2021, 08/30/2017, 11/26/2014, Additional history exists Regular Well Visit/Exam 18-64 08/18/2022 08/18/2021 Influenza Vaccine (#1) 2024 , 04/06/2019, 12/17/2015, Additional history exists Depression Screening 01/05/2025 01/06/2024, 09/14/2023, 04/27/2023, Additional history exists Colon Cancer Screening-Colonoscopy 09/03/2025 09/03/2020, 01/14/2014 DTaP/Tdap/Td Vaccine (3 - Td or Tdap) 02/01/2029 02/01/2019, 07/18/2012 Colon Cancer Screening-CT Colonography Discontinued 09/03/2020, 01/14/2014 Colon Cancer Screening-DNA Stool Discontinued 09/03/2020, 01/14/2014 Colon Cancer Screening-FIT Discontinued 09/03/2020, Colon Cancer Screening-Sigmoidoscopy Discontinued 09/03/2020, 01/14/2014 Pneumococcal vaccine <65 Aged Out No longer eligible based on patient's age to complete this topic Medical Devices Implanted Type Area Business Teacher Device Identifier Shelf Expiration Date Model / Serial / Lot Laci Spine [id number] Cervical Anterior 6d Cage Spinal Tritanium Sterile Latex Free - [id number] Implanted:Qty: 1 on 06/20/2018 by Juan Jose Clinton MD at [facility] N/A: Spine Cervical [place] Spine 04/03/2022 [id number] / / [id number] [employer] -025 Integra Accell Evo3 Putty Graft 2.5cc Bone Demineralized Bone - [id number] - [id number] Implanted:Qty: 1 on 06/20/2018 by Juan Jose Clinton MD at [facility] N/A: Spine Cervical [employer] 04/27/20195000-025 / [id number] / [id number] Laci Spine [id number] Cervical Anterior 6d Cage Spinal Tritanium Sterile Latex Free - [id number] Implanted:Qty: 1 on 06/20/2018 by Juan Jose Clinton MD at [facility] N/A: Spine Cervical [place] [employer]ine 06/22/2022 [id number] / / [id number] Nuv[employer] [id number] Archon 4mm 15mm Self Tap Variable Angle Spine Screw Bone - [id number] Implanted:Qty: 4 on 06/20/2018 by Juan Jose Clinton MD at [facility] N/A: Spine Cervical [employer] [id number] / / [employer] [id number] Archon 42mm 2 Level Spine Plate Bone Nonsterile Degenerative Disc - [id number] Implanted:Qty: 1 on 06/20/2018 by Juan Jose Clinton MD at [facility] N/A: Spine Cervical [employer] [id number] / / [employer] [id number] Archon 4mm 13mm Self Drill Variable Angle Spine Screw Bone - [id number] Implanted:Qty: 2 on 06/20/2018 by Juan Jose Clinton MD at [facility] N/A: Spine Cervical [employer] [id number] / / Procedures Procedure Name Priority Date/Time Associated Diagnosis Comments SCREENING MAMMOGRAM BILATERAL W RIA Schedule Routine, Read Routine (OP Routine) 05/19/2021 1:24 PM CDT Screening mammogram for breast cancer COLONOSCOPY 09/03/2020 12:26 PM CDT from Last 3 Months or Most Recently Relevant to Health Maintenance Results * SCREENING MAMMOGRAM BILATERAL W IRA (05/19/2021 1:24 PM CDT) Anatomical Region Laterality Modality Breast Bilateral Mammography 05/19/2021 2:36 PM CDT Impressions 05/19/2021 2:36 PM CDT BI-RADS Category 1, negative. Recommendation Annual screening mammography. Electronically signed by: Marcela Fisher M.D. Narrative 05/19/2021 2:36 PM CDT Examination: SCREENING MAMMOGRAM BILATERAL W IRA Order Date: 05/19/2021 2:00 PM History: Routine screening, benign left breast biopsy. Comparison:08/30/2017, 03/03/2012 Technique Craniocaudal and mediolateral oblique views of both breasts were obtained utilizing full field 2 D and digital breast tomosynthesis [DBT] images were obtained. CAD was utilized. Breast parenchymal composition. The breasts are almost entirely fatty. Findings There is no suspicious dominant mass, clustered microcalcification or architectural distortion. There is no significant interval change from the prior study. This examination has been subjected to R2/CAD analysis. Deborah Suarez NP IMG MAMMO PROCEDURES Final Result * COLONOSCOPY (09/03/2020 12:26 PM CDT) Anatomical Region Laterality Modality Other Narrative Procedure Note Gama Carty MD - 09/03/2020 12:26 PM CDT [facility] Patient Name: Ruth Brunson Procedure Date: 09/03/2020 12:26 PM Date of : 1965 Admit Type: Outpatient Age: 54 Gender: Female Attending MD: Gama Carty M.D. Room: [facility] ROOM 02 Note Status: Finalized Procedure: Colonoscopy Indications: High risk colon cancer surveillance: Personalhistory of colonic polyps, Last colonoscopy: December2013 Referring MD: Modesto Alegre Providers: Gama Carty M.D. Medicines: Monitored Anesthesia Care Complications: No immediate complications. Estimated Blood Loss: Estimated blood loss was minimal. Procedure: Pre-Anesthesia Assessment: - Immediately prior to administration ofmedications, the patient was re-assessed for adequacy to receive sedatives. The benefits, risks and alternatives of theprocedure and sedation were discussed and informed consentwas obtained. All questions were answered. Please referto the signed informed consent document in the medical record. The scope was passed under direct vision.The [id number] Endoscsope was introduced through the anus and advanced to the the terminal ileum.The colonoscopy was performed without difficulty. The patient tolerated the procedure well. The qualityof the bowel preparation was evaluated using the BBPS (Mcdonald Bowel Preparation Scale) with scores of:Right Colon = 3, Transverse Colon = 3 and Left Colon = 3 (entire mucosa seen well with no residual staining, small fragments of stool or opaque liquid). Thetotal BBPS score equals 9. The bowel preparation used was polyethylene glycol (PEG). Bowel prep wasadministered using a split dose. Findings: The terminal ileum appeared normal. A 4 mm polyp was found in the recto-sigmoid colon. The polyp was sessile. The polyp was removed with a jumbo cold forceps. Resectionand retrieval were complete. Non-bleeding internal hemorrhoids were found during retroflexion. The hemorrhoids were mild. Impression: - The examined portion of the ileum was normal. - One 4 mm polyp at the recto-sigmoid colon.Resected and retrieved. - Non-bleeding internal hemorrhoids. Recommendation: - Discharge patient to home (ambulatory). - Patient has a contact number available for emergencies. The signs and symptoms of potential delayed complications were discussed with thepatient. Return to normal activities tomorrow. Written discharge instructions were provided to thepatient. - Await pathology results. - Repeat colonoscopy in 5 years for surveillance. - If you have issues please call Radha (INFECTION CONTROL COORDINATOR) at [phone]. If it is after hours, please call [phone] and ask for the GI fellow oncology rep specialist. Attending Participation: I personally performed the entire procedure. Electronically by Gama Carty M.D. Gama Carty M.D. 09/03/2020 1:39:24 PM . Number of Addenda: 0 Note Initiated On: 09/03/2020 12:26 PM Recognized by the [employer] for promoting quality in endoscopy Gama Carty MD ENDOSCOPY PROCEDURES Trin[place] l Result from Last 3 Months or Most Recently Relevant to Health Maintenance [place] THE [facility] Advance Directives For more information, please contact: [phone] * Full Code (Latest Code Status on File) Date Activated Date Inactivated Comments 05/06/2021 12:48 AM 05/07/2021 8:26 PM * Full Code Date Activated Date Inactivated Comments 09/03/2020 12:20 PM 09/03/2020 6:13 PM * Full Code Date Activated Date Inactivated Comments 05/31/2020 2:11 PM 06/01/2020 10:19 PM * Full Code Date Activated Date Inactivated Comments 06/20/2018 5:34 PM 06/21/2018 7:36 PM Care Teams Almond Paste Mixer Relationship Specialty Start Date End Date Ken Medley MD [address] [place] [address] PCP - General 05/28/16 Sara Henning, CODEY [address] [place] [address] Registered Nurse 04/14/17 Yaneli Caldwell RN Registered Nurse 02/08/18
--- OUTSIDE RECORDS SUMMARY | 2024-10-03 14:12 | XMS_ITS | Encounter Summary ---
Author Organization [facility] Healthcare Address [address] [place] [address] Care Team Providers Care Blade Aligner Name Role Phone Ken Medley MD Primary Care Provider [phone] Sara Henning RN Unavailable UnavailYaneli Renner RN Unavailable Felicita Nora Romero Unavailable [phone] Encounter Details Date Type Department Care Team (Late st Contact Info) Description 08/29/2018 Telephone [facility] [address] [place] [address] Nusrat Parisi RN Social History Tobacco Use Types Packs/Day Years Used Date Smoking Tobacco: Former Cigarettes Smokeless Tobacco: Current Comments:uses vaporizer Alcohol Use Standard Drinks/Week Comments Yes 0 (1 standard drink = 0.6 oz pur e alcohol) monthly Comments No Sex and Gender Information Value Date Recorded Sex Assigned at Not on file 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 Gender Identity Not on file Sexual Orientation Not on file documented as of this encounter Plan of Treatment Not on file documented as of this encounter Visit Diagnoses Not on filedocumented in this encounter Additional Health Concerns Infection Onset Date Last Indicated Resolved Time COVID: Suspected 01/01/2022 01/01/2022 01/01/2022 11:55 AM CDT RSV, droplet 01/01/2022 01/01/2022 01/08/2022 3:05 AM SALES PERSON documented as of this encounter Care Teams Blade Aligner Relationship Specialty Start Date End Date Ken Medley MD [address] [place] [address] PCP - General 05/28/16 Sara Henning, CODEY [address] [place] [address] Registered Nurse 04/14/17 Yaneli Caldwell, RN Registered Nurse 02/08/18 Nora Sellers [address] [place] [address] [address] [place] [address] ACO Care Decorative Cutting Machine Tender 06/03/20 06/08/20 documented as of this encounter
--- OUTSIDE RECORDS SUMMARY | 2024-10-03 14:12 | XMS_ITS | Clinical Summary ---
Author Organization [facility] Address [address] [place] [id number] Care Team Providers Care Taping Supervisor Name Role Phone Unavailable Primary Care Provider Unavailabl e Social History Tobacco Use Types Packs/Day Years Used Date Smoking Tobacco: Never Assessed Comments Unknown Sex and Gender Information Value Date Recorded Sex Assigned at Not on file Legal Sex Female 7:46 PM CDT Gender Identity Not on file Sexual Orientation Not on file Plan of Treatment Health Maintenance Due Date Last Done Comments Cervical Cancer Screening Pa p Smear (Age 30 to 64) Every 3 Years 1965 Colorectal Cancer Screening Colonoscopy (10 Years) 1965 Annual Physical 12/29/1970 Hepatitis C 12/29/1985 DTaP, Tdap and Td Vaccines ( 1 - Tdap) 12/29/1986 Hepatitis B Vaccines (1 of 3 - 19+ 3-dose series) 12/29/1986 Cervical Cancer Screening Pa p with HPV Testing (Age 30 to 64) Every 5 Years 12/29/1997 Cervical Cancer Screening with HPV 12/29/1997 Mammogram Screening 2007 Pneumococcal Vaccine: 50+ Ye ars (1 of 1 - PCV) 12/29/2017 Zoster Vaccines (1 of 2) 12/29/2017 COVID-19 Vaccine (2023-2 5 season) 2023 Meningococcal B Vaccine Aged Out No l onger eligible based on patient's age to complete this topic Meningococcal Vaccine Aged Out No can yoana eligible based on patient's age to complete this topic RSV Immunizations Under 20 Months Aged Out No longer eligible based on patient's age to complete this topic
--- OUTSIDE RECORDS SUMMARY | 2024-10-03 14:12 | XMS_ITS | Clinical Summary ---
Author Organization [facility] Address [address] [place] [phone] Phone Care Team Providers Care Presser First Name Role Phone Ken Medley MD Primary Care Provider [phone] Medications No known medications Social History Tobacco Use Types Packs/Day Years Used Date Smoking Tobacco: Never Assessed Comments Unknown Sex and Gender Information Value Date Recorded Sex Assigned at Not on file Legal Sex Female 11:23 PM CDT Gender Identity Not on file Sexual Orientation Not on file Last Filed Vital Signs Vital Sign Reading Time Taken Comments Blood Pressure 126/68 06/01/2024 1:18 PM CDT Pulse 60 06/01/2024 1:18 PM CDT Temperature 37.7 C (99.9 F) 06/01/2024 9:47 AM CDT Respiratory Rate 18 06/01/2024 1:18 PM CDT Oxygen Saturation 99% 06/01/2024 1:18 PM CDT Inhaled Oxygen Concentration - - Weight 83.9 kg (185 lb) 06/01/2024 9:44 AM CDT Height 162.6 cm (5' 4) 06/01/2024 9:44 AM CDT Body Mass Index 31.76 06/01/2024 9:44 AM CDT Plan of Treatment Health Maintenance Due Date Last Done Comments Hepatitis C Virus (HCV) Screening 1965 Hepatitis B Immunization (1 of 3 - 19+ 3-dose series) 12/29/1986 Pap Smear 12/29/1988 Cervical Cancer Screening (CCS) 12/29/1997 HPV/Cotest 12/29/1997 Cologuard 12/29/2012 Immunochemical Fecal Occult Blood 12/29/2012 Pneumococcal Immunization (50+ years) (1 of 1 - PCV) 12/29/2017 Zoster Immunization (1 of 2) 12/29/2017 Mammogram 05/19/2022 05/19/2021, 08/30/2017 SARS-COV-2 Immunization (1 - 2023- season) 2023 Influenza Immunization (#1) 2024 02/0 10/2020, 04/06/2019, 12/17/2015, Additional history exists Colonoscopy 09/03/2030 09/03/2020 Colorectal Cancer Screening 09/03/2030 Respiratory Syncytial Virus (RSV) Immunization (Adult) (1 - 1-dose 75+ series) 12/29/2042 DTaP/Tdap/Td Immunization Discontinued 02/01/2019, TdaP Immunization Completed 02/01/2019, 07/18/2012 Human Papillomavirus (HPV) Immunization Aged Out No longer eligible based on patient's age to complete this topic Meningococcal Immunization (ACWY) Aged Out No longer eligible based on patient's age to complete this topic Rotavirus Immunization Aged Out No lo nger eligible based on patient's age to complete this topic Insurance Care Teams Presser First Relationship Specialty Start Date End Date Ken Medley MD [address] [place] [address] PCP - General Internal Medicine 11/05/20
== END 2024-10-03 14:03 | disposition home or self-care (01) ==
PROVIDERS: PCP Family Medicine; Visit Provider Psychiatry & Neurology Neurology
DX: H57.04 Mydriasis (principal); R56.9 Unspecified convulsions; R51.9 Headache, unspecified; G89.29 Other chronic pain
CPT/HCPCS: 70543; A9577